=== PATIENT | female | born 1990 ===

== ENCOUNTER 2020-08-17 14:59 | Outpatient (REF) | payer OTHER, SELFPAY ==
--- NOTE | 2020-08-17 14:59 | CT_ITS ---
EXAMINATION: CT FOREARM, LEFT WITH CONTRAST CLINICAL INFORMATION: Swelling of left upper extremity COMPARISON: Ultrasound performed 03/18/2019. TECHNIQUE: Multidetector volumetric imaging of the left upper extremity is performed after administration of 85 mL of Omnipaque 350 IV contrast. Coronal and sagittal reformatted images are obtained and reviewed. This CT examination was performed using dose optimization techniques as appropriate, variously including the following: *Automated exposure control *Adjustment of mA and/or kV according to patient size (this includes techniques or standardized protocols for targeted exams where dose is matched to indication/reason for exam; i.e. extremities or head) *Use of iterative reconstruction technique DLP: 163 mGy-cm FINDINGS: There is no focal abnormality seen in the left upper extremity soft tissues. The musculature is unremarkable. There is no fluid collection. There is no soft tissue mass. There is no subcutaneous edema. There is no acute osseous abnormality. Appropriate alignment at the shoulder and elbow. Subtle area of sclerosis in the proximal humeral metaphysis is noted which could represent a low-grade chondroid lesion such as enchondroma. The visualized vasculature is grossly unremarkable. The visualized left lung is clear. Visualized mediastinal structures are unremarkable. The visualized ribs are intact. The visualized portion of the left upper quadrant of the abdomen shows no acute abnormality. CT/CT forearm LT w con IMPRESSION: No suspicious findings of the left upper extremity. No soft tissue mass. No fluid collection. No inflammatory changes.
== END 2020-08-17 15:00 | disposition home or self-care (01) ==
LOC: HO.CT 14:59
PROVIDERS: PCP Internal Medicine; Visit Provider Internal Medicine
DX: R22.32 Localized swelling, mass and lump, left upper limb (principal)
CPT/HCPCS: 73201

== ENCOUNTER 2020-09-01 15:06 | Outpatient (REF) | payer OTHER, SELFPAY | END 2020-09-01 15:07 | disposition home or self-care (01) | LOC: HO.LAB 15:06 | PROVIDERS: Visit Provider Internal Medicine | DX: Z20.828 Contact with and (suspected) exposure to other viral communicable diseases (principal) | CPT/HCPCS: C9803; U0003 ==

== ENCOUNTER 2020-10-15 16:36 | Outpatient (REF) | payer OTHER, SELFPAY | END 2020-10-15 16:37 | disposition home or self-care (01) | LOC: HO.LAB 16:36 | PROVIDERS: Visit Provider Internal Medicine | DX: Z20.822 Contact with and (suspected) exposure to COVID-19 (principal) | CPT/HCPCS: 36415; C9803; U0003 ==

== ENCOUNTER 2020-10-28 11:28 | Outpatient (REF) | payer OTHER, SELFPAY | END 2020-10-28 11:29 | disposition home or self-care (01) | LOC: HO.LAB 11:28 | PROVIDERS: PCP Internal Medicine; Referring Provider Nurse Practitioner Family; Visit Provider Surgery | DX: D17.22 Benign lipomatous neoplasm of skin and subcutaneous tissue of left arm (principal) | CPT/HCPCS: 99202 ==

== ENCOUNTER 2020-11-30 10:22 | Outpatient (REF) | payer OTHER, SELFPAY ==
[2020-11-30 12:55] LABS: MANUAL DIFF FLAG NO
[2020-11-30 13:10] LABS: Basophils Percent Auto 0.3 % (0-2); Eosinophils Percent Auto 0.3 % (0-4); Hematocrit 36.5 % (37-47); Imm Gran Abs Auto 0.01 X10*3/uL (0.00-0.03); Imm Gran Pct Auto 0.2 % (0.0-0.4); Lymphocytes Absolute Auto 2.2 X10*3/uL (1.2-4.9); Lymphocytes Percent Auto 35.8 % (20-40); Mean Corpuscular HGB Conc 32.9 g/dl (31.0-35.0); Mean Corpuscular Hemoglobin 28.2 pg (27.0-33.0); Mean Corpuscular Volume 85.9 fL (80-98); Mean Platelet Volume 9.7 fL (9.4-12.3); Monocytes Absolute Auto 0.5 X10*3/uL (0.1-1.2); Monocytes Percent Auto 7.9 % (2-11); Neutrophils Absolute Auto 3.4 X10*3/uL (2.0-8.3); Neutrophils Percent Auto 55.5 % (45-73); Platelet Count 263 X10*3/uL (160-400); Red Blood Count 4.25 X10*6/uL (4.20-5.50); Red Cell Distribution Width 12.9 % (11.0-16.0)
[2020-11-30 13:43] LABS: Anion Gap 11 (12-20); Blood Urea Nitrogen 13 mg/dL (9-16); Calcium 9.1 mg/dL (8.4-10.2); Carbon Dioxide 26 mmol/L (22-29); Chloride 107 mmol/L (96-108); Cholesterol 206 mg/dL; Estimated Glomerular Filt Rate > 60; Glucose Fasting 93 mg/dL (60-99); HDL Cholesterol 36 mg/dL; LDL Cholesterol Calculated 102 mg/dl; Potassium 4.2 mmol/L (3.3-5.1); Sodium 140 mmol/L (135-145); Triglycerides 343 mg/dL
[2020-11-30 13:53] LABS: TSH reflex Free T4 1.06 uIU/mL (0.32-4.0)
[2020-12-01 09:24] LABS: BV Int Neg Control Negative (Negative); BV Int Pos Control Positive (Positive)
[2020-12-01 11:41] LABS: C. trachomatis RNA TMA NOT DETECTED (NOT DETECTED); N. gonorrhoeae RNA TMA NOT DETECTED (NOT DETECTED)
[2020-12-03 11:42] LABS: HPV mRNA E6/E7 rflx Not Detected (Not Detected)
== END 2020-11-30 10:23 | disposition home or self-care (01) ==
LOC: HO.LAB 10:22
PROVIDERS: Nurse Practitioner Family; Visit Provider Obstetrics & Gynecology
DX: Z01.419 Encounter for gynecological examination (general) (routine) without abnormal findings (principal); R63.5 Abnormal weight gain; N89.8 Other specified noninflammatory disorders of vagina; N94.10 Unspecified dyspareunia
CPT/HCPCS: 36415; 80048; 80061; 83001; 84443; 85025; 87480; 87491; 87510; 87591; 87624; 87660; 88142

== ENCOUNTER 2020-12-16 14:58 | Outpatient (REF) | payer OTHER, SELFPAY ==
--- NOTE | ~2020-12-16 | US_ITS ---
EXAMINATION: PELVIC ULTRASOUND CLINICAL INFORMATION: Pelvic pain COMPARISON: None TECHNIQUE: Transabdominal and transvaginal pelvic ultrasound was performed. Transvaginal exam was performed for better visualization of the uterus and ovaries. FINDINGS: The uterus is anteverted and measures 9.5 x 4.9 x 5.8 cm in dimension. No focal uterine lesion is seen. Endometrial thickness is normal measuring 1 cm. The ovaries are normal. The right ovary measures 3.6 x 2.3 x 2.4 cm and the left ovary measures 2.8 x 1.7 x 1.8 cm. There is no fluid in the pelvis. US/US pelvic complete IMPRESSION: Normal pelvic ultrasound.
--- NOTE | ~2020-12-16 | US_ITS ---
EXAMINATION: PELVIC ULTRASOUND CLINICAL INFORMATION: Pelvic pain COMPARISON: None TECHNIQUE: Transabdominal and transvaginal pelvic ultrasound was performed. Transvaginal exam was performed for better visualization of the uterus and ovaries. FINDINGS: The uterus is anteverted and measures 9.5 x 4.9 x 5.8 cm in dimension. No focal uterine lesion is seen. Endometrial thickness is normal measuring 1 cm. The ovaries are normal. The right ovary measures 3.6 x 2.3 x 2.4 cm and the left ovary measures 2.8 x 1.7 x 1.8 cm. There is no fluid in the pelvis. US/US transvaginal IMPRESSION: Normal pelvic ultrasound.
== END 2020-12-16 14:59 | disposition home or self-care (01) ==
LOC: HO.US 14:58
PROVIDERS: Visit Provider Obstetrics & Gynecology
DX: R10.2 Pelvic and perineal pain (principal)
CPT/HCPCS: 76830; 76856

== ENCOUNTER → 2020-12-23 10:33 | Outpatient (BNVA) | payer OTHER, SELFPAY | PROVIDERS: Visit Provider Obstetrics & Gynecology | DX: Z13.89 Encounter for screening for other disorder (principal) | CPT/HCPCS: Q3014 ==

== ENCOUNTER → 2021-02-03 11:25 | Outpatient (BNVA) | payer OTHER, SELFPAY | PROVIDERS: Visit Provider Obstetrics & Gynecology | CPT/HCPCS: Q3014 ==

== ENCOUNTER 2021-02-16 17:29 | Outpatient (REF) | payer OTHER, SELFPAY ==
--- NOTE | ~2021-02-16 | XR_ITS ---
EXAMINATION: XR LUMBOSACRAL SPINE WITH OBLIQUES CLINICAL INFORMATION: Low back pain and left-sided sciatica COMPARISON: Previous lumbar spine x-ray most recent March 2017 TECHNIQUE: AP, both oblique, and lateral views of the lumbar spine. Lateral view of the lumbosacral junction. FINDINGS: Bone alignment is normal. No fracture or dislocation is seen. There is degenerative disc disease at L5-S1. Facet joints are normal. No pars defect is seen. XR/XR lumbar spine 4V min IMPRESSION: Degenerative disc disease at L5-S1.
== END 2021-02-16 17:30 | disposition home or self-care (01) ==
LOC: HO.XRAY 17:29
PROVIDERS: PCP Internal Medicine; Visit Provider Internal Medicine
DX: M54.42 Lumbago with sciatica, left side (principal)
CPT/HCPCS: 72110

== ENCOUNTER 2021-02-17 10:25 | Outpatient (REF) | payer OTHER, SELFPAY ==
[2021-02-17 11:34] LABS: MANUAL DIFF FLAG NO
[2021-02-17 11:45] LABS: Basophils Percent Auto 0.2 % (0-2); Eosinophils Percent Auto 0.7 % (0-4); Hematocrit 35.8 % (37-47); Hemoglobin 11.9 g/dl (12.0-16.0); Imm Gran Abs Auto 0.01 X10*3/uL (0.00-0.03); Imm Gran Pct Auto 0.2 % (0.0-0.4); Lymphocytes Absolute Auto 2.5 X10*3/uL (1.2-4.9); Lymphocytes Percent Auto 42.7 % (20-40); Mean Corpuscular HGB Conc 33.2 g/dl (31.0-35.0); Mean Corpuscular Hemoglobin 29.2 pg (27.0-33.0); Mean Platelet Volume 9.6 fL (9.4-12.3); Monocytes Absolute Auto 0.5 X10*3/uL (0.1-1.2); Monocytes Percent Auto 8.9 % (2-11); Neutrophils Absolute Auto 2.8 X10*3/uL (2.0-8.3); Neutrophils Percent Auto 47.3 % (45-73); Platelet Count 278 X10*3/uL (160-400); Red Blood Count 4.07 X10*6/uL (4.20-5.50); Red Cell Distribution Width 12.4 % (11.0-16.0); White Blood Count 5.8 X10*3/uL (4.8-10.8)
[2021-02-17 12:07] LABS: Estimated Average Glucose 97 mg/dL
[2021-02-17 13:12] LABS: Ferritin 10 ng/mL (10-122); TSH reflex Free T4 1.74 uIU/mL (0.32-4.0)
[2021-02-17 13:17] LABS: Alanine Aminotransferase 15 U/L (0-31); Albumin Level 4.5 g/dL (3.5-5.0); Alkaline Phosphatase 49 U/L (39-117); Anion Gap 12 (12-20); Aspartate Amino Transferase 19 U/L (5-31); Bilirubin Total 0.6 mg/dL (0.0-1.0); Blood Urea Nitrogen 11 mg/dL (9-16); Carbon Dioxide 26 mmol/L (22-29); Chloride 105 mmol/L (96-108); Cholesterol 216 mg/dL; Estimated Glomerular Filt Rate > 60; Glucose Random 84 mg/dL (60-115); HDL Cholesterol 35 mg/dL; Iron 49 mcg/dL (30-160); LDL Cholesterol Calculated 115 mg/dl; Percent Iron Saturation 15 % (15-50); Potassium 4.2 mmol/L (3.3-5.1); Sodium 139 mmol/L (135-145); Total Iron Binding Capacity 328 mcg/dL (228-428); Triglycerides 330 mg/dL; Unsaturated Iron Binding 279 ug/dL
== END 2021-02-17 10:26 | disposition home or self-care (01) ==
LOC: HO.LAB 10:25
PROVIDERS: PCP Internal Medicine; Visit Provider Internal Medicine
DX: Z00.00 Encounter for general adult medical examination without abnormal findings (principal); E70.331 Hermansky-Pudlak syndrome; J45.20 Mild intermittent asthma, uncomplicated
CPT/HCPCS: 36415; 80053; 80061; 82728; 83036; 83540; 84443; 85025

== ENCOUNTER → 2022-03-15 08:26 | Outpatient (BNVA) | payer OTHER, SELFPAY | PROVIDERS: PCP Internal Medicine; Referring Provider Internal Medicine; Visit Provider Surgery | DX: D17.22 Benign lipomatous neoplasm of skin and subcutaneous tissue of left arm (principal); E78.1 Pure hyperglyceridemia; J45.909 Unspecified asthma, uncomplicated | CPT/HCPCS: 99202 ==

== ENCOUNTER 2022-07-19 12:50 | Outpatient (REF) | payer OTHER, SELFPAY | END 2022-07-19 12:51 | disposition home or self-care (01) | LOC: HO.LNP 12:50 | PROVIDERS: PCP Internal Medicine; Visit Provider Advanced Practice Midwife | DX: Z32.02 Encounter for pregnancy test, result negative (principal) | CPT/HCPCS: 81025 ==

== ENCOUNTER 2022-07-19 13:59 | Outpatient (REF) | payer OTHER, SELFPAY ==
[2022-07-20 04:50] LABS: HBc Num1 0.24 S/CO (0.00-0.79); HIV AB/AG Nonreactive (Nonreactive); HIV Num 1 0.09 S/CO (0.00-0.99); Hepatitis B Core Antibody Nonreactive (Nonreactive); ~HepC Num1 0.17 S/CO (0.00-0.79); ~Hepatitis C Antibody Nonreactive (Nonreactive)
[2022-07-20 05:22] LABS: Syphilis Screen Nonreactive (Nonreactive)
[2022-07-20 05:35] LABS: CT PCR NOT DETECTED (Not Detect.); NG PCR NOT DETECTED (Not Detect.)
[2022-07-20 09:21] LABS: BV Int Neg Control Negative (Negative); BV Int Pos Control Positive (Positive)
== END 2022-07-19 14:00 | disposition home or self-care (01) ==
LOC: HO.LAB 13:59
PROVIDERS: PCP Internal Medicine; Visit Provider Advanced Practice Midwife
DX: Z11.3 Encounter for screening for infections with a predominantly sexual mode of transmission (principal); Z11.4 Encounter for screening for human immunodeficiency virus [HIV]; R10.2 Pelvic and perineal pain; Z20.2 Contact with and (suspected) exposure to infections with a predominantly sexual mode of transmission
CPT/HCPCS: 86704; 86780; 86803; 87389; 87480; 87491; 87510; 87591; 87660

== ENCOUNTER 2022-07-21 13:49 | Outpatient (REF) | payer OTHER, SELFPAY ==
--- NOTE | ~2022-07-21 | US_ITS ---
EXAMINATION: US PELVIS COMPLETE US PELVIS ENDOVAGINAL CLINICAL INFORMATION: Displacement of intrauterine contraceptive device COMPARISON: None. TECHNIQUE: Transabdominal and transvaginal images of the pelvis were obtained. FINDINGS: UTERUS: Anteverted. Normal size and contour, measuring 9.5 x 4.8 x 6.4 cm (cervix to fundus x AP x transverse). Uniform, homogeneous endometrium measures 1.6 cm in width. No IUD seen within the endometrial canal. Incidentally noted nabothian cysts in the cervix. RIGHT OVARY: Normal size and echogenicity measuring 2.9 x 2.4 x 2.2 cm. LEFT OVARY: Normal size and echogenicity measuring 3.0 x 2.3 x 1.7 cm. FREE FLUID: Small physiologic volume of pelvic free fluid. US/US pelvic and transvaginal IMPRESSION: Normal pelvic ultrasound. No IUD seen within the endometrial canal.
== END 2022-07-21 13:50 | disposition home or self-care (01) ==
LOC: HO.US 13:49
PROVIDERS: Visit Provider Obstetrics & Gynecology
DX: T83.32XA Displacement of intrauterine contraceptive device, initial encounter (principal); R10.2 Pelvic and perineal pain
CPT/HCPCS: 76830; 76856

== ENCOUNTER → 2023-02-28 14:15 | Outpatient (BNVA) | payer OTHER, SELFPAY | PROVIDERS: Visit Provider Surgery | DX: R22.32 Localized swelling, mass and lump, left upper limb (principal); E70.331 Hermansky-Pudlak syndrome; H54.8 Legal blindness, as defined in USA; J45.909 Unspecified asthma, uncomplicated; E78.1 Pure hyperglyceridemia | CPT/HCPCS: 99212 ==

== ENCOUNTER 2023-06-02 11:02 | Outpatient (REF) | payer OTHER, SELFPAY ==
[2023-06-02 15:01] LABS: Cholesterol 182 mg/dL (<200); HDL Cholesterol 38 mg/dL (>40); LDL Cholesterol Calculated 115 mg/dL (<100); Triglycerides 146 mg/dL (<150)
== END 2023-06-02 11:03 | disposition home or self-care (01) ==
LOC: HO.HHCL 11:02
PROVIDERS: Visit Provider Student in an Organized Health Care Education/Training Program
DX: E66.9 Obesity, unspecified (principal)
CPT/HCPCS: 36415; 80061

== ENCOUNTER 2023-11-01 09:52 | Outpatient (AMB) | payer OTHER, SELFPAY ==
--- NOTE | 2023-11-01 09:53 | A.OFFVIS_ITS ---
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 Hspt Tutor Required: No Information Interpreted: clinical only Senior Risk Analyst: Senior Risk Analyst Present Allergies aspirin [ASPIRIN] Allergy (Unknown, Verified 11/01/23 09:53) HIVES, DIFFICULTY SWALLOWING, swelling ibuprofen [IBUPROFEN] Allergy (Unknown, Verified 11/01/23 09:53) HIVES, swelling Medication List - Last Reconciled 11/01/23 by Beatriz Griffin CNM albuterol sulfate 90 mcg/actuation 2 puffs inhalation Q4-6H PRN Is last menstrual period known: Yes Last menstrual period: 10/09/23 Do you need a note to return to daycare/school/sports/work: No HPI 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 She went to [facility] for her pregnancies but she delivered her last baby at [facility] all 3 were C-sections. 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 She has had her tubes tied and is planning a tubal reversal she has been with the same partner for about 7 years. She is 33 years old she has concerns about whether not she can get once her tubal reversal is done. She says she gets her. Most months but not exactly on time according to the krystal. She says she is otherwise healthy but her cholesterol is a little high and she is going to go see a esthetician/spa coordinator. [facility] Medical History (Updated 11/01/23 @ 11:10 by Beatriz Griffin CNM) Lipoma of arm History of varicella Hermansky-Pudlak syndrome Hypertriglyceridemia Asthma Surgical History (Updated 11/01/23 @ 11:10 by Beatriz Griffin CNM) History of section Family History Father No problems noted. Mother No problems noted. 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 Gender identity: Female Female Reproductive History Menstrual Age of Menarche: 10 Duration of menses: 3-5 days Date of last menstrual period: 10/09/23 control method: none Date of last pap smear: 12/01/20 (negative &2014 neg.) History of abnormal pap smear: Yes (per pt.''abn.pap,2010) Physical Exam Const General: healthy appearing, comfortable, no acute distress, well developed and alert Nutritional Appearance: average body habitus Orientation/consciousness: patient oriented x3 Limitations: no limitations HEENT Head: Yes normocephalic Neck Neck: Yes normal visual inspection Chest Chest palpation & inspection: normal inspection of the chest Breast/axilla inspection: normal inspection of the breasts and normal inspection of the axillae Breast/axilla palpation: normal palpation of the breasts and normal palpation of the axillae Resp Effort & Inspection: normal respiratory effort GI Inspection: Yes normal to inspection, No Abdominal wall edema and No distended Palpation (GI): Soft to palpation and nontender Other: Patient has low-transverse scars externally. Vagina pink and moist cervix tightly closed nulliparous scant clear mucus uterus small firm mobile anteverted. Adnexa not enlarged very good tone with Kegel. General: Yes bladder normal to palpation External Female Exam: normal external appearance and normal appearance of the urethra Speculum Exam - Vagina: normal appearance of the vagina, normal palpation and normal vaginal discharge Speculum Exam - Cervix: normal appearance of the cervix, normal palpation and nontender Bimanual exam- vagina & uterus: normal bimanual exam, normal palpation, uterine size normal, bladder normal to palpation, consistency normal, normal palpation, uterine mobility normal, uterine shape normal, No Cervical tenderness present, non-tender and no cervical motion tenderness Bimanual Exam- Adnexa, other: normal adnexae, no masses, normal and No adnexal tenderness Neuro General: patient oriented x3 Results AMB Test Urine AMB Test Urine Negative Last Edit by Aleisha Fernandez CMA on 11/01/23 10:28 Assessment & Plan Assessment & Plan (1) Encounter for annual routine gynecological examination: Code(s): Z01.419 - Encounter for gynecological examination (general) (routine) without abnormal findings (2) Tubal ligation status: Comment: Patient states she had tubes tied after her 3rd at [facility]. She is planning reversal in [place] soon. 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 Recommended that for any future she be seen at [facility]. Code(s): D69.1 - Qualitative platelet defects Plan -----Discussed in this visit the following: healthy balanced diet, regular and consistent exercise, getting recommended health screens, doing the best she can for her particular health concerns, kegel exercises, pap smear screening and followup recommendations, mammography screening and SBE, normal changes in cycles in her life stage--- .--Discussed that after age 35 the risks of infertility, risks of miscarriage, and chromosomal abnormalities are increased, as well as the risk of complications should she can see if, including diabetes and hypertensive disorders of , pre term delivery and others. I recommend starting vitamins if she has not already started. Discussed that these risks or go up with time. They are much more increased if somebody has any pre-existing conditions. The discussion about her menstrual cycle and signs and symptoms of ovulation and her particular menstrual cycle which appears according to the last several months to be about a 35 day cycle discussed that this is why according to the ?appt? she is ovulating late in her cycle. Reviewed the symptoms of ovulation as well reviewed that if she is actually thinking about getting her to will reversal done she should consider doing it soon because our eggs get older as we get older and fertility wanes with time as well as the risk of defects and other medical complications. Because she has had 3 C sections and also because of her platelet disorder she would probably need to deliver at [facility] and get all of her care from the very start there . Reviewed starting on multivitamins with folic acid offered vitamins but she will get multivitamins at more [facility]. Pap smear was done testing for gonorrhea chlamydia trichomoniasis Gardnerella and [place] were done. Testing offered also for HIV hep B hep C and syphilis and because she wanted to check her glucose I ordered a random glucose as well as a TSH. Orders: Orders AMB HCG Urine Test Today Z32.02 - Encounter for test, result negative Bacterial Vaginosis Panel Today Z20.2 - Contact with and (suspected) exposure to infections with a predominantly sexual mode of transmission Thyroid Stimulating Hormone Today E70.331 - Hermansky-Pudlak syndrome, N92.6 - Irregular menstruation, unspecified, Z01.419 - Encounter for gynecological examination (general) (routine) without abnormal findings, Z31.9 - Encounter for procreative management, unspecified, Z98.51 - Tubal ligation status, Z98.891 - History of uterine scar from previous surgery Hepatitis B Surface Antigen Today E70.331 - Hermansky-Pudlak syndrome, N92.6 - Irregular menstruation, unspecified, Z01.419 - Encounter for gynecological examination (general) (routine) without abnormal findings, Z31.9 - Encounter for procreative management, unspecified, Z98.51 - Tubal ligation status, Z98.891 - History of uterine scar from previous surgery HIV Ab/Ag Today E70.331 - Hermansky-Pudlak syndrome, N92.6 - Irregular menstruation, unspecified, Z01.419 - Encounter for gynecological examination (general) (routine) without abnormal findings, Z31.9 - Encounter for procreative management, unspecified, Z98.51 - Tubal ligation status, Z98.891 - History of uterine scar from previous surgery CT NG by PCR Today Z01.419 - Encounter for gynecological examination (general) (routine) without abnormal findings Pap Smear Today Z01.419 - Encounter for gynecological examination (general) (routine) without abnormal findings Hepatitis C Antibody Today E70.331 - Hermansky-Pudlak syndrome, N92.6 - Irregular menstruation, unspecified, Z01.419 - Encounter for gynecological exam ination (general) (routine) without abnormal findings, Z31.9 - Encounter for procreative management, unspecified, Z98.51 - Tubal ligation status, Z98.891 - History of uterine scar from previous surgery Syphilis Screen Today E70.331 - Hermansky-Pudlak syndrome, N92.6 - Irregular menstruation, unspecified, Z01.419 - Encounter for gynecological examination (general) (routine) without abnormal findings, Z31.9 - Encounter for procreative management, unspecified, Z98.51 - Tubal ligation status, Z98.891 - History of uterine scar from previous surgery Glucose Random Today D69.1 - Qualitative platelet defects, E70.331 - Hermansky- Pudlak syndrome, N92.6 - Irregular menstruation, unspecified, Z01.419 - Encounter for gynecological examination (general) (routine) without abnormal findings, Z31.9 - Encounter for procreative management, unspecified, Z98.51 - Tubal ligation status, Z98.891 - History of uterine scar from previous surgery Coding Level of Care Code New Pt Prev Care 18-39yr([id number] Diagnoses Encounter for annual routine gynecological examination Z01.419 Tubal ligation status Z98.51 History of section Z98.891 Hermansky-Pudlak syndrome E70.331 Menstrual cycle disorder N92.6 Patient desires Z31.9 Platelet disorder D69.1
--- OUTSIDE RECORDS SUMMARY | 2023-11-01 09:54 | XMS_ITS | Continuity of Care Document ---
Author Name Unknown Organization [facility] Address [address] [place] [address]- Care Team Providers Care Business And Marketing Teacher Name Role Phone Abiola Casas MD Primary Care Physician [place] [facility] Date[place]s): 09/06/23 - 10/06/23 [facility] [address] [place] [address]- Attending Physician: Ronaldo Mcginnis Admitting Physician: Ronaldo Mcginnis Referring Physician: Ronaldo Mcginnis Allergies, Adverse Reactions, Alerts Substance Reaction Severity Status ibuprofen Active aspirin rash itch Active Medications Aerochamber See Instructions, # 1 each, Maintenance, use with pro-air, 12/30/19 10:32:00 EDT, Compound, 155, cm, 12/10/18 10:12:00 EDT, Height, 64.8, kg, 07/09/18 10:44:00 EDT, Dry Weight Start Date: 12/30/19 Status: Ordered ferrous sulfate 325 mg oral enteric coated tablet 325 mg, 1, tablet, By Mouth, Daily, Take with citrus juice or Vitamin c tablet, # 30 tablet, Refills 5, Tot. Refills 5, Maintenance, 07/09/18 11:42:05 EDT, Route to Pharmacy Electronically, [id number], [facility]/pharmacy #207 Start Date: 07/09/18 Status: Ordered Golytely - oral powder for reconstitution See Instructions, 240 mL By Mouth Daily, # 4,000 mL, 0 Refills, Maintenance, 12/22/20 14:13:00 EDT,REC Powder, [facility], Partial fill upon patient request if the prescription is for a schedule II opioid drug., 240 mL By Mouth Daily, 155, cm... Start Date: 12/22/20 Status: Ordered Iron 100 Plus 1 tablet, By Mouth, Daily, 0 Refills, Maintenance Start Date: 07/18/12 Status: Ordered ProAir HFA 90 mcg/inh inhalation aerosol with adapter 2, puffs, Inhalation, Every 4 hours, PRN, # 8.5 Gm, Refills 0, Tot. Refills 0, Maintenance, 12/30/19 10:32:00 EDT, Aerosol, Route to Pharmacy Electronically, [id number], [facility]/pharmacy #[id number], 155, cm, 12/10/18 10:12:00 EDT, Hei... Start Date: 12/30/19 Status: Ordered Tylenol Caplet 2 tablet, By Mouth, PRN as needed for pain, 0 Refills, Maintenance Start Date: 07/26/12 Status: Ordered Problem List Condition Confirmation Course Effective Dates Status Health St [facility] Informant Hermansky-Pudlak syndrome Confirmed Active Social History Social History Type Response Smoking Status Never smoker entered on: 02/01/17 Sex Patient Care team information Care Team Personnel Name: Renee Cid Position: [facility] Onco RN Member Role: Primary Care Nurse Name: Abiola Casas MD Position: [facility] Outreach Member Role: PCP Address: Address: [address] [place] [address]- Name: Risa Tony RN Position: [facility] SN RN Member Role: Primary Care Nurse Care Team Related Persons Name: MANUELA DELGADILLO Address: home [address] [place] [address] Name: FILIBERTO DELGADILLO Address: home [address] [place] [address] Name: ROB HUNT Address: home [address] [place], [place] Name: HERBER ALEJANDRO Address: home [address] [place] [address] Name: LUCIA QURESHI Address: home [address] [place] [address] Name: PARESH MILLER Address: home [address] [address]
--- OUTSIDE RECORDS SUMMARY | 2023-11-01 09:54 | XMS_ITS | Continuity of Care Document ---
Author Name Unknown Organization [facility] Address [address] [place] [address]- Care Team Providers Care Pile Header Name Role Phone Abiola Casas MD Primary Care Physician [phone] Encounter [facility] [place] Date(s): 01/31/23 - 03/02/23 [facility] [address] [place] [address]- Allergies, Adverse Reactions, Alerts Substance Reaction Severity [...] 07/09/18 11:42:05 EDT, Route to Pharmacy Electronically, [id number], [facility]/pharmacy #207 Start Date: 07/09/18 Status: Ordered Golytely - oral powder for reconstitution See Instructions, 240 mL By Mouth Daily, # 4,000 mL, 0 Refills, Maintenance, 12/22/20 14:13:00 EDT,REC Powder, [id number], Partial fill upon patient request if the [...] 10:32:00 EDT, Aerosol, Route to Pharmacy Electronically, [id number], [facility]/pharmacy #[id number], 155, cm, 12/10/18 10:12:00 EDT, [...] Care Team Personnel Name: Renee Cid Position: [facility] Onco RN Member Role: Primary Care Nurse Name: Abiola Casas MD Position: [facility] Outreach Member Role: PCP Address: Address: [address] [place] [address]- Care Team Related Persons Name: MANUELA DELGADILLO Address: home [address] [place] [address] Name: FILIBERTO DELGADILLO Address: home [address] [place] [address] Name: ROB HUNT Address: home [address] [place] [address] Name: HERBER ALEJANDRO Address: home [address] [place] [address] Name: LUCIA QURESHI Address: home [address] [place] [address] Name: PARESH MILLER Address: home [address] [address]
--- OUTSIDE RECORDS SUMMARY | 2023-11-01 09:55 | XMS_ITS | Continuity of Care Document ---
Author Name Unknown Organization [facility] ter Address [address] [place] [address]- Care Team Providers Care Master Automotive Technician Name Role Phone Abiola Casas MD Primary Care Physician [place] [facility] Date(s): 08/22/23 - 09/30/[address] [address] Attending Physician: Lawson Razo MD Admitting Physician: Lawson Razo MD Referring Physician: Abiola Casas MD Allergies, Adverse Reactions, Alerts Substance Reaction Severity [...] 07/09/18 11:42:05 EDT, Route to Pharmacy Electronically, [id number], [facility] Start Date: 07/09/18 Status: Ordered Golytely [...] 10:32:00 EDT, Aerosol, Route to Pharmacy Electronically, [id number], [facility]/pharmacy #[id number], 155, cm, 12/10/18 10:12:00 EDT, Hei... [...] Care Team Personnel Name: Renee Cid Position: [facility] Onco RN Member Role: Primary Care Nurse Name: Abiola Casas MD Position: [facility] Outreach Member Role: PCP Address: Address: [address] [place] [address]- Name: Risa Tony RN Position: [facility] SN RN Member Role: Primary Care Nurse Care Team Related Persons Name: MANUELA DELGADILLO Address: home [address] [place] [address] Name: FILIBERTO DELGADILLO Address: home [address] [place] [address] Name: ROB HUNT Address: home [address] [place] [address] Name: HERBER ALEJANDRO Address: home [address] [place] [address] Name: LUCIA QURESHI Address: [address] [place] [address] Name: PARESH MILLER Address: home [address] [address]
--- OUTSIDE RECORDS SUMMARY | 2023-11-01 09:55 | XMS_ITS | Continuity of Care Document ---
Author Name Unknown Organization [facility] ter Address [address] [place] [address]- Care Team Providers Care Assistant Director Of Financial Aid Name Role Phone Augusto VEGA, Abiola Primary Care Physician Encounter [facility] [place] Date(s): 03/06/23 - 04/15/[address] [address] Attending Physician: Lawson Razo MD Admitting Physician: Lawson Razo MD Referring Physician: Sudhir Coffey MD Allergies, Adverse Reactions, Alerts Substance Reaction [...] 07/09/18 11:42:05 EDT, Route to Pharmacy Electronically, [id number], [facility] Start Date: 07/09/18 Status: Ordered [...] 10:32:00 EDT, Aerosol, Route to Pharmacy Electronically, [id number], [facility]/pharmacy #[id number], 155, cm, 12/10/18 10:12:00 EDT, Hei... [...] Care Team Personnel Name: Renee Cid Position: [facility] Onco RN Member Role: Primary Care Nurse Name: Abiola Casas MD Position: [facility] Outreach Member Role: PCP Address: Address: [address] [place] [address]- Care Team Related Persons Name: MANUELA DELGADILLO Address: home [address] [place] [address] Name: FILIBERTO DELGADILLO Address: home [address] [place] [address] Name: ROB HUNT Address: [address] [place] [address] Name: HERBER ALEJANDRO Address: home [address] [place] [address] Name: LUCIA QURESHI Address: home [address] [place] [address] Name: PARESH MILLER Address: home [address] [address]
--- OUTSIDE RECORDS SUMMARY | 2023-11-01 09:55 | XMS_ITS | Continuity of Care Document ---
Author Name Unknown Organization [facility] ter Address [address] [place] [address]- Care Team Providers Care Sales Account Coordinator Name Role Phone Abiola Casas MD Primary Care Physician [place] [facility] [place] [facility] [id number] Date(s): 08/09/23 - 09/16/[address] [address] Attending Physician: Lawson Razo [...] 07/09/18 11:42:05 EDT, Route to Pharmacy Electronically, [id number], [id number] Start Date: 07/09/18 Status: Ordered Golytely - oral powder for reconstitution See Instructions, 240 mL By Mouth Daily, # 4,000 mL, 0 Refills, Maintenance, 12/22/20 14:13:00 EDT,REC Powder, [id number], Partial fill upon patient request if the [...] 10:32:00 EDT, Aerosol, Route to Pharmacy Electronically, [id number], [id number], 155, cm, 12/10/18 10:12:00 EDT, Hei... [...] Care Team Personnel Name: Renee Cid Position: [facility] Onco RN Member Role: Primary Care Nurse Name: Abiola Casas MD Position: [facility] Outreach Member Role: PCP Address: Address: [address] [place] [address]- Name: Risa Tony RN Position: [facility] SN RN Member Role: Primary Care Nurse Care Team Related Persons Name: MANUELA DELGADILLO Address: home [address] [place] [address] Name: FILIBERTO DELGADILLO Address: home [address] [place] [address] Name: ROB HUNT Address: home [address] [place] [address] Name: HERBER ALEJANDRO Address: home [address] [place] [address] Name: LUCIA QURESHI Address: home [address] [place] [address] Name: PARESH MILLER Address: home [address] [address]
--- OUTSIDE RECORDS SUMMARY | 2023-11-01 09:55 | XMS_ITS | Continuity of Care Document ---
Author Name Unknown Organization [facility] Address [address] [place] [address]- Care Team Providers Care Carpet Cutter Name Role Phone Augusto VEGA, Abiola Primary [id number] - 10[facility]06/23 [facility] [address] [place] [address]- Attending Physician: Ryley Jeffery DO Admitting Physician: Ryley Jeffery DO Referring Physician: Peterson Singh MD, Herber Fleming Allergies, Adverse Reactions, Alerts Substance Reaction Severity [...] 07/09/18 11:42:05 EDT, Route to Pharmacy Electronically, [id number], [id number] Start Date: 07/09/18 Status: Ordered [...] 10:32:00 EDT, Aerosol, Route to Pharmacy Electronically, [id number], [facility]/pharmacy #[id number], 155, cm, 12/10/18 10:12:00 [...] Care Team Personnel Name: Renee Cid Position: [facility] Onco RN Member Role: Primary Care Nurse Name: Abiola Casas MD Position: [facility] Outreach Member Role: PCP Address: Address: [address] [place] [address]- Name: Risa Tony RN Position: [facility] SN RN Member Role: Primary Care Nurse Care Team Related Persons Name: MANUELA DELGADILLO Address: home [address] [place] [address] Name: FILIBERTO DELGADILLO Address: home [address] [place] [address] Name: ROB HUNT Address: home [address] [place] [address] Name: HERBER ALEJANDRO Address: [address] [place] [address] Name: LUCIA QURESHI Address: home [address] [place] [address] Name: PARESH MILLER Address: home [address] [address]
--- OUTSIDE RECORDS SUMMARY | 2023-11-01 09:55 | XMS_ITS | Continuity of Care Document ---
Author Name Unknown Organization [facility] ter Address [address] [place] [address]- Care Team Providers Care Welding Machine Operator Arc Name Role Phone Augusto VEGA, Abiola Primary Care Physician [phone] [place] [facility] [place](s): 06/26/23 - 08/05/[address] [address] Attending Physician: Not on Staff, Attending MD Referring Physician: Abiola Casas MD Allergies, [...] 07/09/18 11:42:05 EDT, Route to Pharmacy Electronically, [id number], [id number] Start Date: 07/09/18 Status: Ordered Golytely - oral powder for reconstitution See Instructions, 240 mL By Mouth Daily, # 4,000 mL, 0 Refills, Maintenance, 12/22/20 14:13:00 EDT,REC Powder, [facility], Partial fill upon patient request if the prescription is for a schedule II opioid drug., 240 mL By Mouth Daily, 155, cm... Start Date: 3/23/21 Status: Ordered Iron 100 Plus 1 tablet, By Mouth, Daily, 0 Refills, Maintenance Start Date: 07/18/12 Status: Ordered ProAir HFA 90 mcg/inh inhalation aerosol with adapter 2, puffs, Inhalation, Every 4 hours, PRN, # 8.5 Gm, Refills 0, Tot. Refills 0, Maintenance, 12/30/19 10:32:00 EDT, Aerosol, Route to Pharmacy Electronically, [id number], [facility]/pharmacy #[id number], 155, cm, 12/10/18 10:12:00 EDT, [...] Care Team Personnel Name: Renee Cid Position: [facility] Onco RN Member Role: Primary Care Nurse Name: Abiola Casas MD Position: [facility] Outreach Member Role: PCP Address: Address: [address] [place] [address]- Name: Risa Tony RN Position: [facility] SN RN Member Role: Primary Care Nurse Care Team Related Persons Name: MANUELA DELGADILLO Address: home [address] [place] [address] Name: FILIBERTO DELGADILLO Address: home [address] [place] [address] Name: ROB HUNT Address: [address] [place] [address] Name: HERBER ALEJANDRO Address: home [address] [place] [address] Name: LUCIA QURESHI Address: home [address] [place] [address] Name: PARESH MILLER Address: home [address] [address]
--- OUTSIDE RECORDS SUMMARY | 2023-11-01 09:55 | XMS_ITS | Continuity of Care Document ---
Author Name Unknown Organization [facility] ter Address [address] [place] [address]- Care Team Providers Care Feed Weigher Name Role Phone Augusto VEGA, Abiola Primary Care Physician [phone] Encounter [facility] [place] Date(s): 01/23/23 - 03/08/[address] [address] Attending Physician: Lawson Razo MD [...] 07/09/18 11:42:05 EDT, Route to Pharmacy Electronically, [id number], [id number] Start Date: 07/09/18 Status: Ordered [...] 10:32:00 EDT, Aerosol, Route to Pharmacy Electronically, [id number], [facility]/pharmacy #[id number], 155, cm, 12/10/18 [...] Care Team Personnel Name: Renee Cid Position: [facility] Onco RN Member Role: Primary Care Nurse Name: Abiola Casas MD Position: [facility] Outreach Member Role: PCP Address: Address: [address] [place] [address]- Care Team Related Persons Name: MANUELA DELGADILLO Address: home [address] [place] [address] Name: FILIBERTO DELGADILLO Address: home [address] [place] [address] Name: ROB HUNT Address: [address] [place] [address] Name: HERBER ALEJANDRO Address: [address] [place] [address] Name: LUCIA QURESHI Address: [address] [place] [address] Name: PARESH MILLER Address: home [address] [address]
--- OUTSIDE RECORDS SUMMARY | 2023-11-01 09:55 | XMS_ITS | Continuity of Care Document ---
Author Name Unknown Organization [facility] ter Address [address] [place] [address]- Care Team Providers Care Account Maintenance Representative Name Role Phone Augusto VEGA, Abiola Primary Care Physician [phone] [place] [facility] [place] Date(s): 03/16/23 - 04/26/[address] [address] Attending Physician: Lawson Razo MD Admitting [...] 07/09/18 11:42:05 EDT, Route to Pharmacy Electronically, [id number], [facility] Start Date: 07/09/18 Status: Ordered [...] 10:32:00 EDT, Aerosol, Route to Pharmacy Electronically, [id number], [facility]/pharmacy #[id number], 155, cm, 12/10/18 10:12:00 EDT, Hei... [...] Care Team Personnel Name: Renee Cid Position: [facility] Onco RN Member Role: Primary Care Nurse Name: Abiola Casas MD Position: [facility] Outreach Member Role: PCP Address: Address: [address] [place] [address]- Care Team Related Persons Name: MANUELA DELGADILLO Address: home [address] [place] [address] Name: FILIBERTO DELGADILLO Address: home [address] [place] [address] Name: ROB HUNT Address: home [address] [place] [address] Name: HERBER ALEJANDRO Address: [address] [place] [address] Name: LUCIA QURESHI Address: [address] [place] [address] Name: PARESH MILLER Address: home [address] [address]
--- OUTSIDE RECORDS SUMMARY | 2023-11-01 09:55 | XMS_ITS | Continuity of Care Document ---
Author Name Unknown Organization [facility] Address [address] [place] [address]- Care Team Providers Care Mobile Homes Repairer Name Role Phone Augusto VEGA, Abiola Primary Care Physician Encounter [facility] Date(s): 03/29/23 - 04/28/23 [facility] [address] [place] [id number] Allergies, Adverse Reactions, Alerts Substance Reaction Severity [...] 07/09/18 11:42:05 EDT, Route to Pharmacy Electronically, [id number], [facility]/pharmacy #207 Start Date: 07/09/18 Status: Ordered Golytely [...] 10:32:00 EDT, Aerosol, Route to Pharmacy Electronically, [id number], [facility]/pharmacy #[id number], 155, cm, 12/10/18 10:12:00 EDT, [...] Care Team Personnel Name: Renee Cid Position: [facility] Onco RN Member Role: Primary Care Nurse Name: Abiola Casas MD Position: [facility] Outreach Member Role: PCP Address: Address: [address] [place] [address]- Care Team Related Persons Name: MANUELA DELGADILLO Address: home [address] [place] [address] Name: FILIBERTO DELGADILLO Address: home [address] [place] [address] Name: ROB HUNT Address: [address] [place] [address] Name: HERBER ALEJANDRO Address: [address] [place] [address] Name: LUCIA QURESHI Address: [address] [place] [address] Name: PARESH MILLER Address: home [address] [address]
--- OUTSIDE RECORDS SUMMARY | 2023-11-01 09:56 | XMS_ITS | Continuity of Care Document ---
Author Name Unknown Organization [facility] ter Address [address] [place] [address]- Care Team Providers Care Web Operations Lead Name Role Phone Augusto VEGA, Abiola Primary Care Physician En[place] [facility] [place] Date(s): 02/14/23 - 03/19/[address] [address] Attending Physician: Lawson Razo MD Admitting [...] 07/09/18 11:42:05 EDT, Route to Pharmacy Electronically, [id number], [facility] Start Date: 07/09/18 Status: Ordered [...] 10:32:00 EDT, Aerosol, Route to Pharmacy Electronically, [id number], [facility]/pharmacy #[id number], 155, cm, 12/10/18 10:12:00 EDT, [...] Care Team Personnel Name: Renee Cid Position: [facility] Onco RN Member Role: Primary Care Nurse Name: Abiola Casas MD Position: [facility] Outreach Member Role: PCP Address: Address: [address] [place] [address]- Care Team Related Persons Name: MANUELA DELGADILLO Address: home [address] [place] [address] Name: FILIBERTO DELGADILLO Address: home [address] [place] [address] Name: ROB HUNT Address: [address] [place] [address] Name: HERBER ALEJANDRO Address: [address] [place] [address] Name: LUCIA QURESHI Address: home [address] [place] [address] Name: PARESH MILLER Address: home [address] [address]
--- OUTSIDE RECORDS SUMMARY | 2023-11-01 09:56 | XMS_ITS | Continuity of Care Document ---
Author Name Unknown Organization [facility] ter Address [address] [place] [address]- Care Team Providers Care Third Mate Name Role Phone Abiola Casas MD Primary Care Physician [place] [facility] [place] Date(s): 02/28/23 - 04/01/[address] [address] Attending Physician: Lawson Razo MD Admitting Physician: Lawson Razo MD Referring Physician: Lawson Razo MD Allergies, Adverse Reactions, Alerts Substance Reaction [...] 07/09/18 11:42:05 EDT, Route to Pharmacy Electronically, [id number], [facility] Start Date: 07/09/18 Status: Ordered [...] 10:32:00 EDT, Aerosol, Route to Pharmacy Electronically, [id number], [facility]/pharmacy #[id number], 155, cm, 12/10/18 10:12:00 [...] Care Team Personnel Name: Renee Cid Position: [facility] Onco RN Member Role: Primary Care Nurse Name: Abiola Casas MD Position: [facility] Outreach Member Role: PCP Address: Address: [address] [place] [address]- Care Team Related Persons Name: MANUELA DELGADILLO Address: home [address] [place] [address] Name: FILIBERTO DELGADILLO Address: home [address] [place] [address] Name: ROB HUNT Address: home [address] [place], [place] Name: HERBER ALEJANDRO Address: [address] [place] [address] Name: LUCIA QURESHI Address: [address] [place] [address] Name: PARESH MILLER Address: home [address] [address]
--- OUTSIDE RECORDS SUMMARY | 2023-11-01 09:56 | XMS_ITS | Continuity of Care Document ---
Author Name Unknown Organization [facility] Address [address] [place] [address]- Care Team Providers Care Assembly Line Robot Operator Name Role Phone Augusto VEGA, Abiola Primary Care Physician [place] [facility] [place]23 - 03/30/23 [facility] [address] [place] [address] Allergies, Adverse Reactions, Alerts Substance Reaction Severity [...] 07/09/18 11:42:05 EDT, Route to Pharmacy Electronically, [id number], [facility]/pharmacy #207 Start Date: 07/09/18 Status: Ordered [...] 10:32:00 EDT, Aerosol, Route to Pharmacy Electronically, [id number], [facility]/pharmacy #[id number], 155, cm, 12/10/18 10:12:00 EDT, [...] Care Team Personnel Name: Renee Cid Position: [facility] Onco RN Member Role: Primary Care Nurse Name: Abiola Casas MD Position: [facility] Outreach Member Role: PCP Address: Address: [address] [place] [address]- Care Team Related Persons Name: MANUELA DELGADILLO Address: home [address] [place] [address] Name: FILIBERTO DELGADILLO Address: home [address] [place] [address] Name: ROB HUNT Address: home [address] [place] [address] Name: HERBER ALEJANDRO Address: [address] [place] [address] Name: LUCIA QURESHI Address: [address] [place] [address] Name: PARESH MILLER Address: home [address] [address]
== END 2023-11-01 11:03 | disposition home or self-care (01) ==
LOC: HO.HWSM 09:52
PROVIDERS: Visit Provider Advanced Practice Midwife
DX: Z01.419 Encounter for gynecological examination (general) (routine) without abnormal findings (principal); Z98.51 Tubal ligation status; Z98.891 History of uterine scar from previous surgery; E70.331 Hermansky-Pudlak syndrome; N92.6 Irregular menstruation, unspecified; Z31.9 Encounter for procreative management, unspecified; D69.1 Qualitative platelet defects; Z32.02 Encounter for pregnancy test, result negative
CPT/HCPCS: 99385

== ENCOUNTER 2023-11-01 09:52 | Outpatient (REF) | payer OTHER, SELFPAY ==
[2023-11-01 12:44] LABS: Glucose Random 88 mg/dL (60-115)
[2023-11-01 12:58] LABS: Syphilis Screen Nonreactive (Nonreactive)
[2023-11-02 04:28] LABS: HBsAGNum1 0.84 S/CO (0.00-0.99); HIV AB/AG Nonreactive (Nonreactive); HIV Num 1 0.07 S/CO (0.00-0.99); Hepatitis B Surface Antigen Negative (Negative); ~HepC Num1 0.16 S/CO (0.00-0.79); ~Hepatitis C Antibody Nonreactive (Nonreactive)
[2023-11-02 05:30] LABS: CT PCR NOT DETECTED (Not Detect.); NG PCR NOT DETECTED (Not Detect.)
[2023-11-02 14:07] LABS: BV Int Neg Control Negative (Negative); BV Int Pos Control Positive (Positive)
[2023-11-07 04:38] LABS: HPV mRNA E6/E7 rflx Not Detected (Not Detected)
== END 2023-11-01 09:53 | disposition home or self-care (01) ==
LOC: HO.HHCL 09:52
PROVIDERS: Visit Provider Advanced Practice Midwife
DX: Z01.419 Encounter for gynecological examination (general) (routine) without abnormal findings (principal); E70.331 Hermansky-Pudlak syndrome; N92.6 Irregular menstruation, unspecified; D69.1 Qualitative platelet defects; Z20.2 Contact with and (suspected) exposure to infections with a predominantly sexual mode of transmission; Z98.51 Tubal ligation status; Z98.891 History of uterine scar from previous surgery; Z79.899 Other long term (current) drug therapy; Z32.02 Encounter for pregnancy test, result negative
CPT/HCPCS: 0353U; 81025; 82947; 84443; 86780; 86803; 87340; 87389; 87480; 87510; 87624; 87660; 88142

== ENCOUNTER 2024-01-01 11:32 | Outpatient (AMB) | payer OTHER, SELFPAY ==
[2024-01-01 11:46] VITALS: BP 130/69; PULSE 79
--- NOTE | 2024-01-01 11:46 | MHC.OFFVIS ---
Intake Vital Signs 01/01/24 11:46 Weight 160 lb BP 130/69 Blood Pressure Location Rt brachial Position Sitting Pulse 79 Intake Visit Reasons: Multiple Lipomas left upper arm Intake Note: Patient previously seen by Dr. Maurice. Last visit with him January 2023. She is here for 2nd opinion and discuss txt options for lipomas on Lt upper arm. Lipomas have been present for 1yr. Patient c/o: tenderness, Flash Welder Required: No Accompanied by: Spouse Allergies aspirin [ASPIRIN] Allergy (Unknown, Verified 01/01/24 11:48) HIVES, DIFFICULTY SWALLOWING, swelling ibuprofen [IBUPROFEN] Allergy (Unknown, Verified 01/01/24 11:48) HIVES, swelling HPI HPI Comments History of Present Illness Details Patient presents for follow-up for a left triceps area lipoma. She has had this for several months time. She was being seen by Dr. Hoover for follow-up but she presents here now because he is on medical leave. The lipoma she thinks it is status quo. Patient was seen today with her present. Patient has a platelet dyscrasia. [facility] Medical History Lipoma of arm History of varicella Hermansky-Pudlak syndrome Hypertriglyceridemia Asthma Surgical History History of section Family History Father No problems noted. Mother No problems noted. Paternal Aunt Breast cancer Paternal Grandfather Cancer Social History Alcohol intake: never Patient Tobacco Use Status: Never used Tobacco Current occupational status: employed Current occupation: [employer] at [employer] Gender identity: Female Female Reproductive History Menstrual Age of Menarche: 10 Physical Exam Vital Signs: Last Vital Signs Pulse 79 01/01/24 11:46 BP 130/69 01/01/24 11:46 Skin Other: Proximally 3 x 2 cm left mid triceps lipoma. No other pathology demonstrated. No adenopathy. Assessment & Plan Assessment & Plan (1) Lipoma: Code(s): D17.9 - Benign lipomatous neoplasm, unspecified Plan Therapeutic options reviewed the patient which include continued observation or excision. Because of the superficial nature of the lesion, I think this could be excised and an office setting. She would like to consider excision. All questions answered. She will contact me should she wish to pursue the above. Coding Level of Care Code New Pt Level 4 (989[address]) Diagnoses Lipoma D17.9
== END 2024-01-01 11:56 | disposition home or self-care (01) ==
PROVIDERS: Visit Provider Surgery
DX: D17.9 Benign lipomatous neoplasm, unspecified (principal)
CPT/HCPCS: 99204

== ENCOUNTER → 2024-01-01 11:32 | Outpatient (BNVA) | payer OTHER, SELFPAY | PROVIDERS: Visit Provider Surgery | DX: D17.9 Benign lipomatous neoplasm, unspecified (principal) | CPT/HCPCS: 99202 ==

== ENCOUNTER 2024-02-14 | Outpatient (REF) | payer OTHER, SELFPAY | END 2024-02-14 00:01 | disposition home or self-care (01) | LOC: HO.HHCLNP | PROVIDERS: Visit Provider Emergency Medicine | DX: B00.2 Herpesviral gingivostomatitis and pharyngotonsillitis (principal) | CPT/HCPCS: 36415; 87255 ==

== ENCOUNTER 2024-03-04 09:02 | Outpatient (REF) | payer OTHER, SELFPAY ==
[2024-03-04 12:11] LABS: Alanine Aminotransferase 15 U/L (0-31); Albumin Level 4.2 g/dL (3.5-5.0); Alkaline Phosphatase 56 U/L (39-117); Anion Gap 11 (12-20); Aspartate Amino Transferase 21 U/L (5-31); Bilirubin Total 0.6 mg/dL (0.0-1.0); Blood Urea Nitrogen 13 mg/dL (9-16); Calcium 9.3 mg/dL (8.4-10.2); Carbon Dioxide 26 mmol/L (22-29); Chloride 106 mmol/L (96-108); Cholesterol 186 mg/dL (<200); Estimated Glomerular Filt Rate > 60; Glucose Random 84 mg/dL (60-115); HDL Cholesterol 33 mg/dL (>40); Iron 36 mcg/dL (30-160); LDL Cholesterol Calculated 99 mg/dL (<100); Percent Iron Saturation 12 % (15-50); Potassium 4.2 mmol/L (3.3-5.1); Sodium 139 mmol/L (135-145); Total Iron Binding Capacity 290 mcg/dL (228-428); Total Protein 7.9 g/dL (6.5-8.0); Triglycerides 270 mg/dL (<150); Unsaturated Iron Binding 254 ug/dL
[2024-03-04 12:18] LABS: Hematocrit 32.9 % (37.0-47.0); Hemoglobin 10.3 g/dl (12.0-16.0); Mean Corpuscular HGB Conc 31.3 g/dl (31.0-35.0); Mean Corpuscular Hemoglobin 26.2 pg (27.0-33.0); Mean Corpuscular Volume 83.7 fL (80.0-98.0); Mean Platelet Volume 9.7 fL (9.4-12.3); Platelet Count 344 X10*3/uL (160-400); Red Blood Count 3.93 X10*6/uL (4.20-5.50); Red Cell Distribution Width 15.6 % (11.0-16.0); White Blood Count 6.4 X10*3/uL (4.8-10.8)
[2024-03-04 12:23] LABS: Estimated Average Glucose 103 mg/dL; Hemoglobin A1c % 5.2 % (<6.0)
[2024-03-04 12:31] LABS: Ferritin 9 ng/mL (10-122); TSH reflex Free T4 2.05 uIU/mL (0.32-4.0)
[2024-03-04 12:42] LABS: Vitamin B12 332 pg/mL (200-900)
[2024-03-04 14:08] LABS: CT PCR NOT DETECTED (Not Detect.); NG PCR NOT DETECTED (Not Detect.)
[2024-03-05 05:06] LABS: Syphilis Screen Nonreactive (Nonreactive)
[2024-03-05 05:40] LABS: HBS Num1 47.88 mIU/mL (0-7.99); HBc Num1 0.38 S/CO (0.00-0.79); HBsAGNum1 0.85 S/CO (0.00-0.99); HIV AB/AG Nonreactive (Nonreactive); HIV Num 1 0.07 S/CO (0.00-0.99); Hepatitis B Core Antibody Nonreactive (Nonreactive); Hepatitis B Surface Antigen Negative (Negative); ~HepC Num1 0.18 S/CO (0.00-0.79); ~Hepatitis B Surface Antibody REACTIVE (Nonreactive); ~Hepatitis C Antibody Nonreactive (Nonreactive)
[2024-03-07 14:49] LABS: TS Negative Control Passed; TS Panel A 0; TS Panel B 0; TS Positive Control Passed; TSpotTB Negative (Negative)
== END 2024-03-04 09:03 | disposition home or self-care (01) ==
LOC: HO.HHCL 09:02
PROVIDERS: Visit Provider Student in an Organized Health Care Education/Training Program
DX: Z00.00 Encounter for general adult medical examination without abnormal findings (principal); Z11.4 Encounter for screening for human immunodeficiency virus [HIV]; Z13.6 Encounter for screening for cardiovascular disorders
CPT/HCPCS: 0353U; 36415; 80053; 80061; 82607; 82728; 82746; 83036; 83540; 84443; 85027; 86481; 86704; 86706; 86780; 86803; 87340; 87389

== ENCOUNTER 2024-03-26 12:46 | Outpatient (AMB) | payer OTHER, SELFPAY ==
--- NOTE | 2024-03-26 12:52 | A.OFFVIS_ITS ---
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 Allergies aspirin [ASPIRIN] Allergy (Unknown, Verified 03/26/24 12:59) HIVES, DIFFICULTY SWALLOWING, swelling ibuprofen [IBUPROFEN] Allergy (Unknown, Verified 03/26/24 12:59) HIVES, swelling HPI HPI TISSUE TECHNICIAN/ C Ref/ : Details: Very pleasant 33-year-old female presents for evaluation regarding lower extremity pain. She does have some spider telangiectasias and was concern that there may be a venous component to her pain. 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 In addition she had significant scoliosis as a child. She reports that she Jeff did require celia placement of the spine but it was never done. She also explains that she occasionally has numbness from her back radiating down her glutes and the posterior aspect of her right thigh. She now presents to us for vascular evaluation [facility] Medical History Lipoma of arm History of varicella Hermansky-Pudlak syndrome Hypertriglyceridemia Asthma Surgical History History of section Family History Father No problems noted. Mother No problems noted. 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 [employer] Gender identity: Female Female Reproductive History Menstrual Age of Menarche: 10 Review of Systems Const All systems reviewed & are unremarkable except as noted in HPI and below Reports no additional complaints ENT Reports Normal hearing present Card Denies chest pain, Denies chest pain at rest, Denies chest pain with activity and Denies pedal edema Resp Denies cough GI Denies abdominal pain Musc Denies abnormal gait, Denies muscle cramps and Denies radiating pain into limb Skin/Breast Denies skin ulcer and Denies wounds Neuro Reports Normal hearing present and Denies abnormal gait Psych Reports no additional complaints Physical Exam Vital Signs: Last Vital Signs BP 128/82 03/26/24 12:57 Const General: cooperative, healthy appearing and comfortable Orientation/consciousness: oriented to person, oriented to place and oriented to time HEENT Head: Yes normal to inspection Neck Neck: Yes normal visual inspection Carotids: no bruits Chest Chest palpation & inspection: normal inspection of the chest Resp Effort & Inspection: normal respiratory effort and able to speak in complete sentences Auscultation: clear to auscultation bilaterally, no crackles, no rales, no rhonchi and no wheezes Cardio Rate: regular rate Rhythm: regular rhythm Heart sounds: S1 normal heart sound present and S2 normal heart sound present Bruits: no carotid bruits Peripheral pulses: Peripheral pulses 2+ throughout GI Inspection: Yes normal to inspection Skin Wounds: no wounds Hair: normal Neuro General: oriented to person, oriented to place and oriented to time Cranial nerves: Yes CN's II-XII intact bilaterally and Yes Normal hearing present Cognition (Neuro): normal cognition Motor exam (neuro): 5/5 motor strength present throughout Extrem Other: venous exam: +1 edema with some spider telangiectasias General: No clubbing, No cyanosis and Yes edema Psych Appearance: grossly normal Mental Status: mental status grossly normal Speech and movement: Normal speech and movement present Assessment & Plan Assessment & Plan (1) Varicose veins of right lower extremity with inflammation: Code(s): I83.11 - Varicose veins of right lower extremity with inflammation Category: Medical Plan: In short patient has lower extremity pain. I do believe this is more neurogenic in nature. I have taken the liberty of ordering venous insufficiency testing to rule that out. I did explain that most of her spider telangiectasias are more cosmetic in nature. Should her venous testing prove to be negative will plan for lower extremity pain evaluation. Thank you for allowing us to assist in her care. If there are any questions or concerns please do not hesitate to contact us. Orders: Orders US venous duplex LE BI 1 Week I83.11 - Varicose veins of right lower extremity with inflammation Coding Level of Care Code New Pt Level 4 ([address]) Diagnoses Varicose veins of right lower extremity with inflammation I83.11
[2024-03-26 12:57] VITALS: BP 128/82
== END 2024-03-26 13:29 | disposition home or self-care (01) ==
PROVIDERS: Visit Provider Surgery Vascular Surgery
DX: I83.11 Varicose veins of right lower extremity with inflammation (principal)
CPT/HCPCS: 99203

== ENCOUNTER → 2024-03-26 12:46 | Outpatient (BNVA) | payer OTHER, SELFPAY | PROVIDERS: Visit Provider Surgery Vascular Surgery | DX: I83.11 Varicose veins of right lower extremity with inflammation (principal) | CPT/HCPCS: 99202 ==

== ENCOUNTER 2024-04-10 13:01 | Outpatient (REF) | payer OTHER, SELFPAY ==
--- NOTE | ~2024-04-10 | US_ITS ---
EXAMINATION: US LOWER EXTREMITY VENOUS (REFLUX EXAM), BILATERAL CLINICAL INDICATION: Varicose veins of the right lower extremity COMPARISON: None. TECHNIQUE: Color flow triplex imaging and compression Doppler was performed to evaluate both the deep and the superficial systems bilaterally. To evaluate the superficial system, the examination was performed in the upright position. Color-flow Doppler ultrasound and compression ultrasound were utilized. In addition, maneuvers were utilized to demonstrate reflux. FINDINGS: RIGHT: 1. DEEP VENOUS ULTRASOUND OF THE RIGHT LOWER EXTREMITY: Common Femoral Vein: Compressible, normal respiratory variation and augmented flow. Popliteal Vein: Compressible, normal augmentation. Deep Venous Reflux: There is no evidence of reflux in the deep system in either the common femoral vein or the popliteal vein. There is no evidence of a Romano's cyst. 2. SUPERFICIAL ULTRASOUND WITH DOPPLER OF RIGHT LOWER EXTREMITY: RIGHT GREAT SAPHENOUS VEIN: Saphenofemoral Junction: 6 mm. No reflux. Proximal Thigh: 2 mm. No reflux. Mid Thigh: 2 mm. No reflux. Above Knee: 3 mm. No reflux. Below Knee: 2 mm. No reflux. Mid Calf: 2 mm. No reflux. Ankle: 2 mm. No reflux. DUPLICATED GREAT SAPHENOUS VEIN: Lateral: Mid thigh: 2 mm. No reflux. RIGHT SMALL SAPHENOUS VEIN: Proximal: 2 mm. No reflux. Distal: 3 mm. No reflux. PERFORATORS: Great saphenous vein at the distal calf: 2 mm. No reflux. LEFT: 1. DEEP VENOUS ULTRASOUND OF THE LEFT LOWER EXTREMITY: Common Femoral Vein: Compressible, normal respiratory variation and augmented flow. Popliteal Vein: Compressible, normal augmentation. Deep Venous Reflux: There is no evidence of reflux in the deep system in either the common femoral vein or the popliteal vein. There is no evidence of a Romano's cyst. 2. SUPERFICIAL ULTRASOUND WITH DOPPLER OF LEFT LOWER EXTREMITY: LEFT GREAT SAPHENOUS VEIN: Saphenofemoral Junction: 6 mm. No reflux. Proximal Thigh: 6 mm. No reflux. Mid Thigh: 2 mm. No reflux. Above Knee: 2 mm. No reflux. Below Knee: 2 mm. No reflux. Mid Calf: 2 mm. No reflux. Ankle: 1 mm. No reflux. DUPLICATED GREAT SAPHENOUS VEIN: None LEFT SMALL SAPHENOUS VEIN: Proximal: 2 mm. No reflux. Distal: 2 mm. No reflux. PERFORATORS: None US/US venous duplex LE BI IMPRESSION: No abnormal superficial or deep venous reflux of bilateral lower extremities. No varicose veins. No deep vein thrombosis. Abnormal lower extremity venous reflux times: Superficial and deep calf veins: >500 ms Femoropopliteal veins: >1000 ms Perforating veins: >350 ms Zoraida N, Beatrice J, Vernon L, Geoffrey AK, Faustino SS, Jenn Elizondo, Rosalina WH. Definition of venous reflux in lower-extremity veins.J Vasc Surg. 2003; 38:[phone]?798.
== END 2024-04-10 13:02 | disposition home or self-care (01) ==
LOC: HO.US 13:01
PROVIDERS: PCP Student in an Organized Health Care Education/Training Program; Visit Provider Surgery Vascular Surgery
DX: I83.11 Varicose veins of right lower extremity with inflammation (principal)
CPT/HCPCS: 93970

== ENCOUNTER 2024-04-27 16:44 | Emergency (ER) | payer OTHER, SELFPAY ==
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
[2024-04-27 16:48] VITALS: BP 122/82; PULSE 101; O2SAT 95
[2024-04-27 16:54] VITALS: BP 134/66; PULSE 109; RESP 16; TEMP 36.6; O2SAT 100; BMI 29.2
[2024-04-27 18:09] LABS: Appearance Urine Clear; Color Urine Yellow; Glucose Urine UA Negative (Negative); Leukocyte Esterase Urine Negative (Negative); Nitrite Urine Negative (Negative); Urine Blood Negative (Negative); Urine Ketones Negative (Negative); Urine Protein Negative (Neg-Trace)
[2024-04-27 18:10] LABS: UPreg QC Valid YES; Urine Pregnancy NEGATIVE (NEGATIVE)
--- NOTE | 2024-04-27 18:13 | PC.NURSE ---
Patient very concerned about internal bleeding d/t her HPS Hermansky-Pudlak syndrome, requesting CT scan. Informed patient that she is next on the list for a provider to see, nurses are unable to order that level of testing without provider's okay. Patient comfortable to wait for blood work until provider has seen her.
[2024-04-27 18:20] LABS: Amphetamine Screen Urine Not Detected (Not Detect); Barbiturates, Urine Not Detected (Not Detect); Benzodiazepines Screen Urine Not Detected (Not Detect); Buprenorphine Scr Not Detected (Not Detect); Cannabinoid Screen Urine Not Detected (Not Detect); Cocaine Screen Urine Not Detected (Not Detect); Fentanyl, urine Not Detected (Not Detect); Methadone Screen, Urine Not Detected (Not Detect); Opiate Screen Urine Not Detected (Not Detect); Oxycodone Screen Urine Not Detected (Not Detect); Phencyclidine Screen Urine Not Detected (Not Detect)
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
[2024-04-27] MEDS: Acetaminophen 325 MG TABLET 650 MG PO (18:41)
[2024-04-27 21:28] VITALS: BP 109/84; PULSE 81; RESP 17; TEMP 36.9; O2SAT 99
[2024-04-27 22:41] VITALS: BP 109/84; PULSE 81; RESP 17; TEMP 36.9; O2SAT 99
== END 2024-04-27 22:42 | disposition home or self-care (01) ==
PROVIDERS: Emergency Provider Emergency Medicine; PCP Student in an Organized Health Care Education/Training Program
DX: R51.9 Headache, unspecified (principal); S70.11XA Contusion of right thigh, initial encounter; V43.62XA Car passenger injured in collision with other type car in traffic accident, initial encounter; Y93.89 Activity, other specified; Y92.410 Unspecified street and highway as the place of occurrence of the external cause; Y99.9 Unspecified external cause status; Z79.899 Other long term (current) drug therapy
CPT/HCPCS: 70450; 70486; 71045; 72125; 73552; 80307; 81003; 81025; 99284

== ENCOUNTER 2024-05-07 12:55 | Outpatient (AMB) | payer OTHER, SELFPAY ==
--- NOTE | 2024-05-07 12:54 | MHC.OFFVIS ---
Vital Signs 05/07/24 12:57 Height 5 ft 1 in Weight 158 lb BMI 29.9 BP 112/74 Blood Pressure Location Rt brachial Position Sitting Intake Visit Reasons: follow up [facility] 04/10/24 Intake Note: Demetrice is a 33 year old female who presents to the office today for a follow up [facility] 04/10/24. Allergies aspirin [ASPIRIN] Allergy (Unknown, Verified 05/07/24 12:54) HIVES, DIFFICULTY SWALLOWING, swelling ibuprofen [IBUPROFEN] Allergy (Unknown, Verified 05/07/24 12:54) HIVES, swelling HPI HPI follow up [facility] 04/10/24: Details: Pleasant 33-year-old female presents for follow-up regarding venous pain. Her concern is that she does have some spider telangiectasias. She has occasional swelling of her lower extremities. 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 She now presents for follow-up with venous insufficiency testing. Of note she does have back pain issues and she does have a prior history of spinal scoliosis. [facility] Medical History Lipoma of arm History of varicella Hermansky-Pudlak syndrome Hypertriglyceridemia Asthma Surgical History History of section Family History Father No problems noted. Mother No problems noted. 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 [employer] Gender identity: Female Female Reproductive History Menstrual Age of Menarche: 10 Review of Systems Const All systems reviewed & are unremarkable except as noted in HPI and below Reports no additional complaints ENT Reports Normal hearing present Card Denies chest pain, Denies chest pain at rest, Denies chest pain with activity and Denies pedal edema Resp Denies cough GI Denies abdominal pain Musc Denies abnormal gait, Denies muscle cramps and Denies radiating pain into limb Skin/Breast Denies skin ulcer and Denies wounds Neuro Reports Normal hearing present and Denies abnormal gait Psych Reports no additional complaints Physical Exam Vital Signs: Last Vital Signs BP 112/74 05/07/24 12:57 BMI result Body Mass Index 29.9 Const General: cooperative, healthy appearing and comfortable Orientation/consciousness: oriented to person, oriented to place and oriented to time HEENT Head: Yes normal to inspection Neck Neck: Yes normal visual inspection Carotids: no bruits Chest Chest palpation & inspection: normal inspection of the chest Resp Effort & Inspection: normal respiratory effort and able to speak in complete sentences Auscultation: clear to auscultation bilaterally, no crackles, no rales, no rhonchi and no wheezes Cardio Rate: regular rate Rhythm: regular rhythm Heart sounds: S1 normal heart sound present and S2 normal heart sound present Bruits: no carotid bruits Peripheral pulses: Peripheral pulses 2+ throughout GI Inspection: Yes normal to inspection Skin Wounds: no wounds Hair: normal Neuro General: oriented to person, oriented to place and oriented to time Cranial nerves: Yes CN's II-XII intact bilaterally and Yes Normal hearing present Cognition (Neuro): normal cognition Motor exam (neuro): 5/5 motor strength present throughout Extrem Other: venous exam: No significant superficial varicosities or spider telangiectasias, minimal edema General: No clubbing, No cyanosis and No edema Psych Appearance: grossly normal Mental Status: mental status grossly normal Speech and movement: Normal speech and movement present Results Reviewed Results Reviewed: Brief summary of venous insufficiency testing is as follows: right great saphenous vein: negative right small saphenous vein: negative right accessory vein: none present left great saphenous vein: negative left small saphenous vein: negative left accessory vein: none present Please note there is no evidence of any venous aneurysms or significant tortuosity Assessment & Plan Assessment & Plan (1) Varicose veins of right lower extremity with inflammation: Code(s): I83.11 - Varicose veins of right lower extremity with inflammation Category: Medical Plan: In short patient is negative for any significant venous insufficiency. I do think it is coincidental that she does have some spider telangiectasias which have been a source of pain and discomfort for her. Due to her underlying conditions would not recommend any sort of intervention especially with her testing being negative. At the current time would recommend conservative measures including compression elevation and exercise. She will follow up with us on an as-needed basis. Thank you for allowing us to assist in her care. If there are any questions or concerns please do not hesitate to contact us Coding Level of Care Code Est Pt Level 4 (71046) Diagnoses Varicose veins of right lower extremity with inflammation I83.11
[2024-05-07 12:57] VITALS: BP 112/74; BMI 29.9
== END 2024-05-07 13:15 | disposition home or self-care (01) ==
PROVIDERS: PCP Student in an Organized Health Care Education/Training Program; Visit Provider Surgery Vascular Surgery
DX: I83.11 Varicose veins of right lower extremity with inflammation (principal)
CPT/HCPCS: 99214

== ENCOUNTER → 2024-05-07 12:55 | Outpatient (BNVA) | payer OTHER, SELFPAY | PROVIDERS: PCP Student in an Organized Health Care Education/Training Program; Visit Provider Surgery Vascular Surgery | DX: I83.11 Varicose veins of right lower extremity with inflammation (principal) | CPT/HCPCS: 99212 ==

== ENCOUNTER 2024-05-10 13:28 | Outpatient (REF) | payer OTHER, SELFPAY ==
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
== END 2024-05-10 13:29 | disposition home or self-care (01) ==
LOC: HO.HHCX 13:28
PROVIDERS: Visit Provider Nurse Practitioner Family
DX: M25.572 Pain in left ankle and joints of left foot (principal)
CPT/HCPCS: 73610

== ENCOUNTER 2025-04-30 13:37 | Outpatient (REF) | payer OTHER, SELFPAY ==
--- OUTSIDE RECORDS SUMMARY | 2025-04-30 14:17 | XMS_ITS | Encounter Summary ---
Author Organization [employer] Address [address] [place] [address] Care Team Providers Care Talent Director Name Role Phone Rosy Cobb MD Primary Care Pro vider Reason for Visit * Reason Onset Date Comments Med Refill 07/16/2024 Encounter Details Date Type Department Care Team ([facility] st Contact Info) Description 07/16/2024 Telephone [facility] [address] [place] [address] Rosy Cobb MD [address] [place] [address] Med Refill Social History Tobacco Use Types Packs/Day Years Used Date Smoking Tobacco: Never Passive Smoke Exposure: Never Smokeless Tobacco: Never Alcohol Use Standard Drinks/Week Comments Yes 0 (1 standard drink = 0.6 oz pur e alcohol) social Depression Answer Date Recorded Patient Health Questionnaire-9 Score 1 01/31/2024 Patient Health Questionnaire-9 Score 1 01/31/2024 Last PHQ-9: Questionnaire Data Not on file 0 01/31/2024 Housing Stability Answer Date Recorded What is your housing situation today? I have pennie traore 01/31/[address] you li ve. Do you have problems with any of the following? None of the above 01/31/2024 Food Insecurity Answer Date Recorded Within the past 12 months, y ou worried that your food would run out before you got money to buy more: Never True 01/31/2024 Within the past 12 months,th e food you bought just didn't last and you didn't have enough money to get more: Never True 10/2023 Transportation Answer Date Recorded In the past 12 months, has l ack of transportation kept you from medical appts, meetings, work or from getting things needed for daily living? No 01/31/2024 Utilities Answer Date Recorded In the past 12 months, has t he electric, gas, oil or water company threatened to shut off services in your home? No 01/31/2024 Depression Answer Date Recorded Patient Health Questionnaire-2 Score 0 01/31/2024 Comments Unknown Sex and Gender Information Value Date Recorded Sex Assigned at Female 08/01/2022 10:19 AM EDT Legal Sex Female 10:19 AM EDT Gender Identity Female 08/01/2022 10:19 AM EDT Sexual Orientation Straight 06/02/2023 10 :15 AM EDT documented as of this encounter Miscellaneous Notes * Telephone Encounter - Yohannes Ricardo - 07/16/2024 12:02 PM EDT Tc from pt requesting call back regarding program where she received a [employer] gift card every month. Pt states she was advised this would be through pcp. Please contact pt at [phone]. documented in this encounter Plan of Treatment Upcoming Encounters Date Type Department Care Team (Late st Contact Info) Description 05/01/2025 2:15 PM EDT Office Visit [facility] [address] [place] [phone] Rosy Cobb MD [address] [place] [id number] documented as of this encounter Visit Diagnoses Not on filedocumented in this encounter Additional Health Concerns Assessment Noted Time PHQ-9 Depression Total Score: 1 01/31/20 24 10:55 AM EDT documented as of this encounter Care Teams Talent Director Relationship Specialty Start Date End Date Rosy Cobb MD [address] [place] [phone] PCP - General Internal Medicine 01/25/23 documented as of this encounter
--- OUTSIDE RECORDS SUMMARY | 2025-04-30 14:17 | XMS_ITS | Encounter Summary ---
Author Organization [facility] Address [address] [place] [address] Phone Care Team Providers Care Package Center Supervisor Name Role Phone Unavailable Primary Care Provider Unavailabl e Encounter Details Date Type Department Care Team (Late st Contact Info) Description 05/18/2017 Conversion Encounter [facility] - [address] [id number] Social History Tobacco Use Types Packs/Day Years Used Date Smoking Tobacco: Never Assessed Comments Unknown Sex and Gender Information Value Date Recorded Sex Assigned at Not on file Legal Sex Female 4:32 PM EDT Gender Identity Not on file Sexual Orientation Not on file documented as of this encounter Plan of Treatment Not on file documented as of this encounter Visit Diagnoses Not on filedocumented in this encounter
[2025-04-30 16:10] LABS: Hematocrit 36.1 % (37.0-47.0); Hemoglobin 11.8 g/dl (12.0-16.0); Mean Corpuscular HGB Conc 32.7 g/dl (31.0-35.0); Mean Corpuscular Hemoglobin 27.4 pg (27.0-33.0); Mean Corpuscular Volume 84.0 fL (80.0-98.0); NRBC Abs Auto 0.000 X10*3/uL (0.0-0.012); NRBC Pct Auto 0.0 /100WBC (0.0-0.2); Platelet Count 324 X10*3/uL (160-400); Red Blood Count 4.30 X10*6/uL (4.20-5.50); White Blood Count 5.3 X10*3/uL (4.8-10.8)
[2025-04-30 16:29] LABS: Hemoglobin A1C 106.1958 umol/L; Total Hemoglobin (HGBA1C) 3149.4241 umol/L
[2025-04-30 16:31] LABS: Alanine Aminotransferase 21 U/L (0-31); Albumin Level 4.6 g/dL (3.5-5.0); Alkaline Phosphatase 58 U/L (39-117); Anion Gap 12 (12-20); Aspartate Amino Transferase 32 U/L (5-31); Blood Urea Nitrogen 9 mg/dL (9-16); Calcium 9.1 mg/dL (8.4-10.2); Carbon Dioxide 26 mmol/L (22-29); Chloride 106 mmol/L (96-108); Cholesterol 207 mg/dL (<200); Estimated Glomerular Filt Rate > 60; HDL Cholesterol 35 mg/dL (>40); Iron 55 mcg/dL (30-160); Percent Iron Saturation 19 % (15-50); Potassium 4.2 mmol/L (3.3-5.1); Sodium 140 mmol/L (135-145); Total Iron Binding Capacity 286 mcg/dL (228-428); Total Protein 7.9 g/dL (6.5-8.0); Triglycerides 326 mg/dL (<150); Unsaturated Iron Binding 231 ug/dL
[2025-04-30 16:55] LABS: Ferritin 10 ng/mL (10-122)
[2025-04-30 17:41] LABS: CT PCR Urine NOT DETECTED (Not Detect.); NG PCR Urine NOT DETECTED (Not Detect.)
[2025-05-01 08:05] LABS: Syphilis Screen Nonreactive (Nonreactive)
[2025-05-01 08:27] LABS: HBsAGNum1 0.62 S/CO (0.00-0.99); HIV Num 1 0.08 S/CO (0.00-0.99); Hepatitis B Surface Antigen Negative (Negative); ~HepC Num1 0.18 S/CO (0.00-0.79); ~Hepatitis C Antibody Nonreactive (Nonreactive)
== END 2025-04-30 13:38 | disposition home or self-care (01) ==
LOC: HO.HHCL 13:37
PROVIDERS: PCP Student in an Organized Health Care Education/Training Program; Visit Provider Student in an Organized Health Care Education/Training Program
DX: Z11.4 Encounter for screening for human immunodeficiency virus [HIV] (principal); Z11.3 Encounter for screening for infections with a predominantly sexual mode of transmission; Z11.59 Encounter for screening for other viral diseases; Z00.00 Encounter for general adult medical examination without abnormal findings
CPT/HCPCS: 36415; 80053; 80061; 82306; 82728; 83036; 83540; 84443; 85027; 86780; 86803; 87340; 87389; 87491; 87591

== ENCOUNTER 2025-05-16 13:40 | Outpatient (REF) | payer OTHER, SELFPAY ==
--- OUTSIDE RECORDS SUMMARY | 2025-05-16 13:42 | XMS_ITS | Encounter Summary ---
Author Organization [facility] Address [address] [place] [address] Phone Care Team Providers Care Table Saw Operator Name Role Phone Unavailable Primary Care Provider Unavailabl e Encounter Details Date Type Department Care Team (Late st Contact Info) Description 05/18/2017 Conversion Encounter [facility] - [address] [address] Social History Tobacco Use Types Packs/Day Years [...]
--- OUTSIDE RECORDS SUMMARY | 2025-05-16 13:42 | XMS_ITS | Encounter Summary ---
Author Organization [employer] Address [address] [facility] 7t [place] [address] Care Team Providers Care Rack Loader Name Role Phone Rosy Cobb MD Primary Care Pro vider Reason for Visit * Reason Onset Date Comments Lab Orders 05/16/2025 Encounter Details Date Type Department Care Team (Late st Contact Info) Description 05/16/2025 Telephone [facility] [address] [place] [address] Beatriz Ray RN Lab Orders Social History Tobacco Use Types Packs/Day Years Used Date Smoking Tobacco: Never Passive Smoke Exposure: Never Smokeless Tobacco: Never Alcohol Use Standard Drinks/Week Comments Not Currently 0 (1 standard drink = 0.6 oz pur e alcohol) Depression Answer Date Recorded Patient Health Questionnaire-9 Score 0 02/10/2025 Patient Health Questionnaire-9 Score 0 02/10/2025 Last PHQ-9: Questionnaire Data Not on file 0 02/10/2025 Housing Stability Answer Date Recorded What is your housing situation today? I have penniecarolann traore 02/04/[address] you li ve. Do you have problems with any of the following? None of the above 02/04/2025 Food Insecurity Answer Date Recorded Within the past 12 months, y ou worried that your food would run out before you got money to buy more: Never True 02/04/2025 Within the past 12 months,th e food you bought just didn't last and you didn't have enough money to get more: Never True 03/2025 Transportation Answer Date Recorded In the past 12 months, has l ack of transportation kept you from medical appts, meetings, work or from getting things needed for daily living? No 02/04/2025 Utilities Answer Date Recorded In the past 12 months, has t he electric, gas, oil or water company threatened to shut off services in your home? 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 documented in this encounter Plan of Treatment Upcoming Encounters Date Type Department Care Team (Late st Contact Info) Description 07/31/2025 11:15 AM EDT Office Visit [facility] [address] [place] [address] Rosy Cobb MD [address] [place] [phone] Scheduled Orders Name Type Priority Associated Diagnoses Orde r Schedule T-SPOT .TB Lab Routine Encounter for occupational health assessment Expected: 05/16/2025 (Approximate), Expires: 05/16/2026 documented as of this encounter Visit Diagnoses Diagnosis Encounter for occupational health assessment documented in this encounter Additional Health Concerns Assessment Noted Time PHQ-9 Depression Total Score: 0 02/11/20 25 1:30 PM EDT documented as of this encounter Care Teams Rack Loader Relationship Specialty Start Date End Date Rosy Cobb MD [address] [place] [phone] PCP - General Internal Medicine 01/25/23 documented as of this encounter
[2025-05-19 13:38] LABS: TS Negative Control Passed; TS Panel A 0; TS Panel B 0; TS Positive Control Passed; TSpotTB Negative (Negative)
== END 2025-05-16 13:41 | disposition home or self-care (01) ==
LOC: HO.HHCL 13:40
PROVIDERS: PCP Student in an Organized Health Care Education/Training Program; Visit Provider Student in an Organized Health Care Education/Training Program
DX: Z02.89 Encounter for other administrative examinations (principal); Z11.1 Encounter for screening for respiratory tuberculosis
CPT/HCPCS: 36415; 86481

== ENCOUNTER 2025-06-13 14:16 | Outpatient (REF) | payer OTHER, SELFPAY ==
--- OUTSIDE RECORDS SUMMARY | 2025-06-13 11:15 | XMS_ITS | Encounter Summary ---
Author Organization [employer] Address [address] [facility] 7t [place] [address] Care Team Providers Care Director Food Safety Name Role Phone Rosy Cobb MD Primary Care Pro vider Encounter Details Date Type Department Care Team (Late st Contact Info) Description 06/13/2025 11:15 AM EDT Office Visit [facility] [address] [place] [address] Minoo Castro DO [address] [place] [address] Vaginal discharge (Primary Dx) Social History Tobacco Use Types Packs/Day Years [...] housing situation today? I have pennie traore 02/04/[address] you [...] Access Q2 Not on file 02/04/2025 Comments No Sex and Gender Information Value Date Recorded Sex Assigned at Female 08/01/2022 10:19 AM EDT Legal Sex Female 10:19 AM EDT Gender Identity Female 08/01/2022 10:19 AM EDT Sexual Orientation Straight 06/02/2023 10 :15 AM EDT documented as of this encounter Last Filed Vital Signs Vital Sign Reading Time Taken Comments Blood Pressure 128/72 06/13/2025 11:40 AM EDT Pulse 88 06/13/2025 11:40 AM EDT Temperature 36.9 C (98.4 F) 06/13/2025 11:40 AM EDT Respiratory Rate 19 06/13/2025 11:40 AM EDT Oxygen Saturation 98% 06/13/2025 11:40 AM EDT Inhaled Oxygen Concentration - - Weight 77.3 kg (170 lb 6 oz) 06/13/2025 11:40 AM EDT Height - - Body Mass Index 32.19 05/01/2025 1:57 PM EDT documented in this encounter Plan of Treatment Upcoming Encounters Date Type Department Care Team (Late st Contact Info) Description 07/31/2025 11:15 AM EDT Office Visit [facility] [address] [place] [phone] Rosy Cobb MD [address] [place] [address] Scheduled Orders Name Type Priority Associated Diagnoses Orde r Schedule Culture, Urine, Routine Microbiology Routine Vaginal discharge Expected: 06/13/2025 (Approximate), Expires: 06/13/2026 documented as of this encounter Procedures Procedure Name Priority Date/Time Associated Diagnosis Comments POCT URINALYSIS DIPSTICK Routine 06/13/2025 12:05 PM EDT Vaginal discharge POCT , URINE Routine 06/13/2025 12:04 PM EDT Vaginal discharge BACTERIAL VAGINOSIS PANEL Routine 06/13/2025 11:33 AM EDT Vaginal discharge CHLAMYDIA/N. GONORRHOEAE RNA, TMA, UROGENITAL Routine 06/13/2025 11:33 AM EDT Vaginal discharge documented in this encounter Results * POCT Urinalysis (06/13/2025 12:05 PM EDT) Color, UA Yellow Clarity, UA Cloudy Glucose, UA Negative Bilirubin, UA Trace Comment:small Ketones, UA Negative Spec Grav, UA 1.030 Blood, UA Negative Negative, None Detected pH, UA 5.5 Protein, UA Trace Comment:30mg Urobilinogen, UA 0.2 Leukocytes, UA Negative Negative, Rare, Trace Nitrite, UA Negative Negative, None Detected QC Media Lot # [id number] Lot# Expiration Date Urine 06/13/2025 12:0 5 PM EDT Minoo Castro DO POINT OF CARE TEST ENTER/KEITH T ORDERABLES Final Result * POCT Urine (06/13/2025 12:04 PM EDT) Pathologist [facility] Preg Test, Ur Negative Negative, Indeterminate, None Detected, Invalid, Specimen unsatisfactory for evaluation, Weakly Positive, 2+ QC Media Lot # [id number] Lot# Expiration Date Urine 06/13/2025 12:0 4 PM EDT Minoo [employer] RILEY POINT OF CARE TEST ENTER/KEITH T ORDERABLES Final Result * Chlamydia/N. Gonorrhoeae RNA, TMA, Vaginal (06/13/2025 11:33 AM EDT) Pathologist [facility] CT PCR NOT DETECTED Not Detect. [facility] Comment:A not detected test result does not exclude the possibilityof infection because test results can be affected byimproper specimen collection, concurrent antibiotic therapy,or the number of organisms in the specimen which may bebelow the sensitivity of the test. As with many diagnostictests, results from the Xpert CT/NG assay should beinterpreted in conjunction with other laboratory andclinical data available to the clinician.Xpert CT/NG performance has not been evaluated in patientsless than 14 years of age. The assay should not be used forthe evaluationof suspected sexual abuse or for other medico-legalindications. Additional testing is recommended in anycircumstance when false positive or false negative resultscould lead to adverse medical, social or psychologicalconsequences. NG PCR NOT DETECTED Not Detect. [facility] Comment:A not detected test result does not exclude the possibilityof infection because test results can be affected byimproper specimen collection, concurrent antibiotic therapy,or the number of organisms in the specimen which may bebelow the sensitivity of the test. As with many diagnostictests, results from the Xpert CT/NG assay should beinterpreted in conjunction with other laboratory andclinical data available to the clinician.Xpert CT/NG performance has not been evaluated in patientsless than 14 years of age. The assay should not be used forthe evaluationof suspected sexual abuse or for other medico-legalindications. Additional testing is recommended in anycircumstance when false positive or false negative resultscould lead to adverse medical, social or psychologicalconsequences. Swab (Vaginal Swab) 06/13/2025 11:33 AM EDT 06/13/2025 2:17 PM EDT us Minoo Castro DO LAB MICROBIOLOGY - GENERAL O RDERABLES Final Result [facility] [address] [place] [phone] * (ABNORMAL) Bacterial Vaginosis Panel (06/13/2025 11:33 AM EDT) TRICHOMONAS VAGINALIS DETECTION BY PCR NOT DETECTED Not Detect [facility] BACTERIAL VAGINOSIS DETECTION BY PCR POSITIVE(A) Negative [facility] Comment:The BV organism targ ets of the Xpert Xpress MVP test can becommensal in women; Xpert Xpress MVP positive results forbacterial vaginosis should be considered in conjunction withother clinical and patient information to determine thedisease status. Organisms that are not detected by the XpertXpress MVP test have also been reported to be associatedwith BV and aerobic vaginitis.The Xpert Xpress MVP test performance has not been evaluatedin patients under the age of 14. [employer] DETECTION BY PCR DETECTED(A) Not Detect [facility] Concepción glab krusei PCR NOT DETECTED Not Detect [facility] Swab Vaginal structure / Unknown 06/13/2025 11:33 AM EDT 06/13/2025 2:17 PM EDT us Minoo Castro DO LAB MICROBIOLOGY - GENERAL O RDERABLES Final Result [facility] [address] [place] [phone] [phone] documented in this encounter Visit Diagnoses Diagnosis Vaginal discharge- Primary Leukorrhea, not specified as infective documented in this encounter Additional Health Concerns Assessment Noted Time PHQ-9 Depression Total Score: 0 02/11/20 25 1:30 PM EDT documented as of this encounter Care Teams Director Food Safety Relationship Specialty Start Date End Date Rosy Cobb MD [address] [place] [phone] PCP - General Internal Medicine 01/25/23 documented as of this encounter
[2025-06-13 15:33] LABS: Bacterial Vaginosis PCR POSITIVE (Negative); Candida Group PCR DETECTED (Not Detect); Candida glab krusei PCR NOT DETECTED (Not Detect); Trichomonas vaginalis PCR NOT DETECTED (Not Detect)
[2025-06-13 16:06] LABS: CT PCR NOT DETECTED (Not Detect.); NG PCR NOT DETECTED (Not Detect.)
--- OUTSIDE RECORDS SUMMARY | 2025-06-13 17:14 | XMS_ITS | Clinical Summary ---
Author Organization [facility] Address [address] [place] [address] Phone Care Team Providers Care Medical Attendant Name Role Phone Unavailable Primary Care Provider Unavailabl e Immunizations Immunization Administration Dates Next Due DTP 03/31/1999, 9,08/31/1992,1990 Hep B, ped/adol 02/18/2001,08/15/2000,07/13/2000 Hib (PRP-T) 03/01/1990 IPV 03/31/1999, 9,11/01/1998,1991,03/31/1991 MMR 08/31/1999,08/31/1992 Td (adult) (MBL), 2 Lf tetan us toxoid, PF, adsorbed 07/13/2000 Varicella 10/19/2001 Family History Relation Name Status Comments Brother Brother: Asthma Maternal Grandfather Materna l grandfather: Sudden /[place] under age 55 Social History Tobacco Use Types Packs/Day Years Used Date Smoking Tobacco: Never Assessed Comments Unknown Sex and Gender Information Value Date Recorded Sex Assigned at Not on file Legal Sex Female 4:32 PM EDT Gender Identity Not on file Sexual Orientation Not on file Plan of Treatment Health Maintenance Due Date Last Done Comments Varicella Vaccines (2 of 2 - 13+ 2-dose series) 11/16/2001 10/19/2001 DTaP,Tdap,and Td Vaccines (6 - Tdap) 07/13/2010 07/13/2000, 03/31/1999, 12/30/1998, Additional history exists HPV Vaccines (1 - 3-dose SCDM series) 2015 Influenza Vaccines (#1) 2025 COVID-19 Vaccine ( season) 2025 HIB Vaccines Completed 03/01/1990 IPV Vaccines Completed 03/31/1999, 12/02, 11/01/1998, Additional history exists MMR Vaccines Completed 08/31/1999, 08/31/1992 Hepatitis B Vaccines Completed 02/18/2001, 08/15/2000, 07/13/2000 Hepatitis A Vaccines Aged Out No long er eligible based on patient's age to complete this topic Men B Vaccine Aged Out No longer elig ible based on patient's age to complete this topic Meningococcal Vaccine Aged Out No annmarie julia eligible based on patient's age to complete this topic Pneumococcal Vaccine Aged Out No long er eligible based on patient's age to complete this topic
--- OUTSIDE RECORDS SUMMARY | 2025-06-13 17:14 | XMS_ITS | Encounter Summary ---
Author Organization [employer] Address [address] [facility] 7 [place] [address] Care Team Providers Care Supervisor Finish End Name Role Phone Rosy Cobb MD Primary Care Pro vider Reason for Visit * Reason Onset Date Comments Med Refill 07/16/2024 Encounter Details Date Type Department Care Team ([facility] st Contact Info) Description 07/16/2024 Telephone [facility] [address] [place] [address] Rosy Cobb MD [address] [place] [address] Med Refill Social History Tobacco Use Types [...] be through pcp. Please contact pt at [phone]. documented in this encounter Plan of Treatment Upcoming Encounters Date Type Department Care Team (Late st Contact Info) Description 07/31/2025 11:15 AM EDT Office Visit [facility] [address] [place] [address] Rosy Cobb MD [address] [place] [phone] documented as of this encounter Visit Diagnoses Not on filedocumented in this encounter Additional Health Concerns Assessment Noted Time PHQ-9 Depression Total Score: 1 01/31/20 24 10:55 AM EDT documented as of this encounter Care Teams Supervisor Finish End Relationship Specialty Start Date End Date Rosy Cobb MD [address] [place] [phone] PCP - General Internal Medicine 01/25/23 documented as of this encounter
--- OUTSIDE RECORDS SUMMARY | 2025-06-13 17:14 | XMS_ITS | Encounter Summary ---
Author Organization [employer] Address [address] [facility] 7t [place] [address] Care Team Providers Care Retail Store Manager Name Role Phone Rosy Cobb MD Primary Care Pro vider Encounter Details Date Type Department Care Team (Latest Contact Info) Description 06/13/2025 Travel Social History Tobacco Use Types Packs/Day Years [...] AM EDT documented as of this encounter Plan of Treatment Upcoming Encounters Date Type Department Care Team (Late st Contact Info) Description 07/31/2025 11:15 AM EDT Office Visit [facility] [address] [place] [phone] Rosy Cobb MD [address] [place] [address] documented as of this encounter Visit Diagnoses Not on filedocumented in this encounter Additional Health Concerns Assessment Noted Time PHQ-9 Depression Total Score: 0 02/11/20 25 1:30 PM EDT documented as of this encounter Care Teams Retail Store Manager Relationship Specialty Start Date End Date Rosy Cobb MD [address] [place] [address] [phone] PCP - General Internal Medicine 01/25/23 documented as of this encounter
--- OUTSIDE RECORDS SUMMARY | 2025-06-13 17:14 | XMS_ITS | Encounter Summary ---
Author Organization [employer] Address [address] [facility] 7t [place] [address] Care Team Providers Care Principal Technical Writer Name Role Phone Rosy Cobb MD Primary Care Pro vider Encounter Details Date Type Department Care Team (Late st Contact Info) Description 06/09/2025 Orders Only [facility] [address] [place] [address] Rosy Cobb MD [address] [place] [address] Social History Tobacco Use Types Packs/Day Years [...] Description 07/31/2025 11:15 AM EDT Office Visit [facility] [address] [place] [address] Rosy Cobb MD [address] [place] [phone] documented as of this encounter Visit Diagnoses Not on filedocumented in this encounter Additional Health Concerns Assessment Noted Time PHQ-9 Depression Total Score: 0 02/11/20 25 1:30 PM EDT documented as of this encounter Care Teams Principal Technical Writer Relationship Specialty Start Date End Date Rosy Cobb MD [address] [place] [address] [phone] PCP - General Internal Medicine 01/25/23 documented as of this encounter
--- OUTSIDE RECORDS SUMMARY | 2025-06-13 17:14 | XMS_ITS | Encounter Summary ---
Author Organization [employer] Address [address] [facility] 7 [place] [address] Care Team Providers Care Business Line Controller Name Role Phone Rosy Cobb MD Primary Care Pro vider Reason for Visit * Reason Onset Date Comments Nurse Triage 06/13/2025 Encounter Details Date Type Department Care Team ([facility] st Contact Info) Description 06/13/2025 Telephone [facility] [address] [place] [address] Rosy Cobb MD [address] [place] [address] Nurse Triage Social History Tobacco Use Types Packs/Day Years [...] encounter Miscellaneous Notes * Telephone Encounter - Annelise Wetzel RN - 06/13/2025 9:29 AM EDT Call returned to Demetrice Marques to triage below at [phone]. Reports having sx of vaginal discharge with odor x 2 days. Pt reports no color to discharge. Pt denies any urinary sx. Pt endorses pelvic pain. No flank pain. Denies any fever N/v. Pt denies concerns for STI, but wants testing done anyway. Pt states used OTC boric acid with no improvement. Pt advised of disposition, agrees to sick onsite with team provider today. Protocol Used: Vaginal Discharge (Adult) Protocol-Based Disposition: See in Office or Video Visit within 3 Days Future Appointments Date Time Provider Department Center 06/13/2025 11:15 AM Minoo Castro DO [facility] 07/31/2025 11:15 AM Rosy Singh MD [facility]ICINE [facility] Insurance verified as active per Real Time Eligibility in [facility]. Positive Triage Question: * Bad smelling vaginal discharge * All higher-acuity triage questions were negative Care Advice Discussed: * Genital Hygiene * Reasons To Call Back - Discharge becomes yellow or green - Fever or abdomen pain occur - You become worse * Telephone Encounter - Ruth Murray - 06/13/2025 9:25 AM EDT Symptom: Vaginal Symptoms - Not Bleeding Outcome: Talk to a nurse or provider within 15 minutes Reason: Severe pelvic pain now The caller accepted this outcome. Contact pt at [phone] documented in this encounter Plan of Treatment Upcoming Encounters Date Type Department Care Team (Late st Contact Info) Description 07/31/2025 11:15 AM EDT Office Visit [facility] [address] [place] [address] Rosy Cobb MD [address] [place] [address] [phone] documented as of this encounter Visit Diagnoses Not on filedocumented in this encounter Additional Health Concerns Assessment Noted Time PHQ-9 Depression Total Score: 0 02/11/20 25 1:30 PM EDT documented as of this encounter Care Teams Business Line Controller Relationship Specialty Start Date End Date Rosy Cobb MD [address] [place] [phone] PCP - General Internal Medicine 01/25/23 documented as of this encounter
--- OUTSIDE RECORDS SUMMARY | 2025-06-13 17:14 | XMS_ITS | Encounter Summary ---
Author Organization [facility] Address [address] [place] [address] Phone Care Team Providers Care Hammer Heater Name Role Phone Unavailable Primary Care Provider Unavailabl e Encounter Details Date Type Department Care Team (Late st Contact Info) Description 05/18/2017 Conversion Encounter [facility] - [address] [address] Social History Tobacco Use Types Packs/Day Years [...]
--- OUTSIDE RECORDS SUMMARY | 2025-06-13 17:14 | XMS_ITS | Encounter Summary ---
Author Organization [employer] Address [address] [facility] 7t [place] [address] Care Team Providers Care Equipment Cleaner And Tester Name Role Phone Rosy Cobb MD Primary Care Pro vider Reason for Visit * Reason Onset Date Comments Prior Auth Prescription 06/05/2025 PT came in explaining that other weight loss medication has been denied. Pharnacist explained to send out Phenterime and topiramate as a non combo product. Encounter Details Date Type Department Care Team (Late st Contact Info) Description 06/05/2025 Telephone [facility] [address] [place] [address] Rosy Cobb MD [address] [place] [address] Prior Auth Prescription (PT came in explaining that other weight loss medication has been denied. Pharnacist explained to send out Phenterime and topiramate as a non combo product. ) Social History Tobacco Use Types Packs/Day Years [...] the past 12 months, has t he [employer], gas, oil or water [employer] threatened to shut off services in your [...] encounter Miscellaneous Notes * Telephone Encounter - Lakshmi Gamez RN - 06/09/2025 3:11 PM EDT Telephone call placed to pt. Informed phentermine sent to pharmacy. Advised to call if having any SE. Explained step therapy. Pt verbalized understanding and denied having any further questions or concerns at this time. Telephone call placed to [facility]. Spoke with Hedy who states phentermine covered, they will fill it now. Please inform pt I will start then w Phentermine only Pt s/p tubal ligation , LMP 05/22/2025 I Explained possible SE at last discussion w pt and to call if experiencing SE -please advise pt start med once a day sent today and to keep apt w me in 07/2025 ,If tolerating well I will increase dose then Thanks * Telephone Encounter - Miguel Esteves MA - 06/05/2025 2:22 PM EDT PT came in explaining that other weight loss medication has been denied. Pharnacist explained to send out Phenterime and topiramate as a non combo product. documented in this encounter Plan of Treatment Upcoming Encounters Date Type Department Care Team (Late st Contact Info) Description 07/31/2025 11:15 AM EDT Office Visit [facility] [address] [place] [address] Rosy Cobb MD [address] [place] [phone] documented as of this encounter Visit Diagnoses Not on filedocumented in this encounter Additional Health Concerns Assessment Noted Time PHQ-9 Depression Total Score: 0 02/11/20 25 1:30 PM EDT documented as of this encounter Care Teams Equipment Cleaner And Tester Relationship Specialty Start Date End Date Rosy Cobb MD [address] [place] [phone] PCP - General Internal Medicine 01/25/23 documented as of this encounter
--- OUTSIDE RECORDS SUMMARY | 2025-06-13 17:14 | XMS_ITS | Clinical Summary ---
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 Unknown 04/30/2025 1:41 PM EDT 04/30/2025 3:57 PM EDT Rosy Singh MD LAB BLOOD ORDERAB LES Final Result Performing Organization Address [facility] Co de Phone Number [facility] [address] [place] [phone] * Hemoglobin A1c (04/30/2025 1:41 PM EDT) Hemoglobin A1c 5.2 <6.0 % [facility] Comment:Hemoglobin A1C Refer ence Range Adults: 4.8 - 6.0 % Non diabetic: < 6.0 % Goal: < 7.0 %Additional Action Suggested: > 8.0 %Note: Hemoglobin A1c results are invalid for patients with abnormal amounts of HbF. Blood transfusions may impact the HbA1c concentration in the patient sample. Estimated Average Glucose 103 mg/dL [facility] Comment:eAG = Estimated ave rage glucose which is %A1C expressed asaverage glucose, using the formula of the P9P-HatkhsuXpoxypq Glucose study (ADAG), Diabetes Care, Vol.31,#8,2007 Blood Venous blood specimen / Unknown 04/30/2025 1:41 PM EDT 04/30/2025 3:57 PM EDT us Rosy Singh MD LAB BLOOD ORDERAB LES Final Result Performing Organization Address City/[facility] Co de Phone Number [facility] [address] [place] [phone] * Ferritin (04/30/2025 1:41 PM EDT) Ferritin 10 10 - 122 ng/mL [facility] Blood Venous blood specimen / Unknown 04/30/2025 1:41 PM EDT 04/30/2025 3:57 PM EDT us Rosy Singh MD LAB BLOOD ORDERAB LES Final Result [facility] [address] [place] [phone] * (ABNORMAL) Lipid Panel, Standard (04/30/2025 1:41 PM EDT) Triglycerides 326(H) <150 mg/dL [facility] Comment:Slight Lipemia.Evan able Triglyceride: less than 150 mg/dLBorderline High Triglyceride 150-199 mg/dLHigh Triglyceride: 200-499 mg/dLVery High Triglyceride: greater than or equal to 5OO mg/dL Cholesterol 207(H) <200 mg/dL [facility] Comment:Desirable Cholestero l: less than 200 mg/dLBorderline High Cholesterol: 200-239 mg/dLHigh Cholesterol: greater than 239 mg/dL LDL Cholesterol Calculated 107(H) <100 mg/dL [facility] Comment:Desirable LDL: less than 100 mg/dLNear Optimal/Above Optimal LDL: 110- 129 mg/dLBorderline High LDL: 130-159 mg/dLHigh LDL: 160-189 mg/dLVery High LDL: greater than or equal to 190 mg/dL HDL Cholesterol 35(L) >40 mg/dL [facility] Comment:Desirable HDL: great er than 40 mg/dL Note: This HDL assay may give artificially low results in patients with liver disease. Blood Venous blood specimen / Unknown 04/30/2025 1:41 PM EDT 04/30/2025 3:57 PM EDT us Rosy Singh MD LAB BLOOD ORDERAB LES Final Result [facility] [address] [place] [phone] * (ABNORMAL) Comprehensive Metabolic Panel (04/30/2025 1:41 PM EDT) Sodium 140 135 - 145 mmol/L [facility] Potassium 4.2 3.3 - 5.1 mmol/L [facility] Chloride 106 96 - 108 mmol/L [facility] Carbon Dioxide 26 22 - 29 mmol/L [facility] Anion Gap 12 12 - 20 [facility] Urea Nitrogen (BUN) 9 9 - 16 mg/dL [facility] Creatinine, Serum 0.65 0.5 - 1.4 mg/dL [facility] Estimated Glomerular Filt Rate >60 [facility] Comment:Chronic Kidney Disea se: Estimated GFR < 60 mL/min/1.24h8Qhibsh Kidney Disease: Estimated GFR < 15 mL/min/1.73m2 Glucose 87 60 - 115 mg/dL [facility] Calcium 9.1 8.4 - 10.2 mg/dL [facility] Bilirubin, Total 0.7 0.0 - 1.0 mg/dL [facility] Aspartate Amino Transferase 32(H) 5 - 31 U/L [facility] Alanine Aminotransferase 21 0 - 31 U/L [facility] Total Protein 7.9 6.5 - 8.0 g/dL [facility] Albumin Level 4.6 3.5 - 5.0 g/dL [facility] Alkaline Phosphatase 58 39 - 117 U/L [facility] Blood Venous blood specimen / Unknown 04/30/2025 1:41 PM EDT 04/30/2025 3:57 PM EDT us Rosy Singh MD LAB BLOOD ORDERAB LES Final Result [facility] [address] [place] [phone] * Chlamydia/Trichomonas/Neisseria gonorrhoeae, PCR, Urine (04/30/2025 1:40 PM EDT) CT PCR, Urine NOT DETECTED Not Detect. [facility] Comment:A not detected test result does not exclude the possibilityof infection because test results can be affected byimproper specimen collection, concurrent antibiotic therapy,or the number of organisms in the specimen which may bebelow the sensitivity of the test. As with many diagnostictests, results from the Xpert CT/NG assay should beinterpreted in conjunction with other laboratory andclinical data available to the clinician.The Xpert CT/NG assay should not be used for the evaluationof suspected sexual abuse or for other medico-legalindications. Additional testing is recommended in anycircumstance when false positive or false negative resultscould lead to adverse medical, social or psychologicalconsequences. NG PCR, Urine NOT DETECTED Not Detect. [facility] Comment:A not detected test result does not exclude the possibilityof infection because test results can be affected byimproper specimen collection, concurrent antibiotic therapy,or the number of organisms in the specimen which may bebelow the sensitivity of the test. As with many diagnostictests, results from the Xpert CT/NG assay should beinterpreted in conjunction with other laboratory andclinical data available to the clinician.The Xpert CT/NG assay should not be used for the evaluationof suspected sexual abuse or for other medico-legalindications. Additional testing is recommended in anycircumstance when false positive or false negative resultscould lead to adverse medical, social or psychologicalconsequences. 04/30/2025 1:40 PM EDT 04/30/2025 4:07 PM EDT us Rosy Singh MD LAB URINE ORDERAB LES Final Result [facility] [address] [facility] [place] [phone] * HPV mRNA E6/E7 w/Reflex to HPV Genotypes 16, 18/45 (11/01/2023 10:55 AM EST) HPV nRNA E6/E7 Not Detected Not Detected [facility] Comment:Methodology: Transcr iption-Mediated AmplificationThis assay detects E6/E7 viral messenger RNA (mRNA) from 14high-risk HPV types (16,18,31,33,35,39,45,51,52,56,58,59,66,68).Cervical sources are required for HPV testing.If a vaginal source from a patient who has had atotal hysterectomy with removal of cervix wassubmitted, please contact the testing laboratoryfor alternative testing options.For additional information, please refer tohttp://education.[employer]/faq/ELA226e8(This link if provided for information/educational purposes only.)THIS TEST WAS PERFORMED AT:[facility] [place] [phone] GOMEZ MD HPV mRNA E6/E7 [facility] HPV 16 RNA [facility] HPV 18/45 RNA [facility] 11/01/2023 10:5 5 AM EST 11/02/2023 9:50 AM EST us Generic External Data Provider LAB CYTOLOGY URI SPENCE Final Result [facility] [address] [place] [phone] * Pap Smear (11/01/2023 10:55 AM EST) 11/01/2023 10:5 5 AM EST 11/02/2023 9:50 AM EST Narrative [facility] - 11/15/2023 6:55 AM EST ----- ------- Name: Demetrice Cronin Age/Sex: 33/F : 1990 Unit#: [id number] Attend Dr: Beatriz Griffin CNM Re11/01/23 Status: DEP REF Location: [facility] Disch: ----- ------- SPEC : [id number] RECD: 11/02/23-949 STATUS: NETTA RODRÍGUEZ NUM: [id number] RUTH ANN: 11/01/23-10[address] [facility] DR: Beatriz Griffin [facility] ENTERED: 11/02/23-1040 SP TYPE: Pap Smr OTHR DR: [facility] ORDERED: Pap Smear Interpretation Satisfactory for evaluation. Negative for intraepithelial lesion or malignancy. HPV mRNA E6/E7: NOT DETECTED This assay detects E6/E7 viral messenger RNA (mRNA) from 14 high-risk HPV types (16, 18, 31, 33, 35, 39, 45, 51, 52, 56, 58, 59, 66, 68) HPV testing performed by [facility], [place], [place]. See reference laboratory portion of the EMR for entire report. Clinical Information LMP: 10/09/2023 Previous PAP test: 12/01/2020, per patient 'abn pap' 2010 Material Received ThinPrep-Cervical Copies To: [facility] [address] [place] [address] Beatriz Griffin [address] Pelletier [address] [place] [phone] ----- ------- Signed (signature on file) WILBERT Storm ([facility]) 11/15/23 0655 ----- ------- END OF REPORT us Generic External Data Provider LAB CYTOLOGY URI SPENCE Final Result [facility] [address] [place] [phone] [phone] from Last 3 Months or Most Recently Relevant to Health Maintenance Insurance [facility] CARE < 65 HILDA RIGGINS [id number] [facility] Care Teams Nurse Behavioral Health Care Relationship Specialty Start Date End Date Rosy Cobb MD [address] [place] [address] PCP - General Internal Medicine 01/25/23
--- OUTSIDE RECORDS SUMMARY | 2025-06-13 17:14 | XMS_ITS | Encounter Summary ---
Author Organization [employer] Address [address] [facility] 7t [place] [address] Care Team Providers Care Document Restorer Name Role Phone Rosy Cobb MD Primary Care Pro vider Encounter Details Date Type Department Care Team (Late st Contact Info) Description 04/30/2025 Results Follow-Up [facility] [address] [place] [address] Rosy Cobb MD [address] [place] [address] [employer] Iron Binding Capacity, Ferritin, CBC, Additional followed-up results: 5 Social History Tobacco Use Types Packs/Day Years [...] as of this encounter Miscellaneous Notes * Result Encounter Note - Rosy Singh MD - 04/30/2025 9:08 PM EDT Please call patient to advise to come to already scheduled apt with me to go over abnormal labs Thanks documented in this encounter Plan of Treatment Upcoming Encounters Date Type Department Care Team (Late st Contact Info) Description 07/31/2025 11:15 AM EDT Office Visit [facility] [address] [place] [phone] Rosy Cobb MD [address] [place] [phone] documented as of this encounter Visit Diagnoses Not on filedocumented in this encounter Additional Health Concerns Assessment Noted Time PHQ-9 Depression Total Score: 0 02/11/20 25 1:30 PM EDT documented as of this encounter Care Teams Document Restorer Relationship Specialty Start Date End Date Rosy Cobb MD [address] [place] [phone] PCP - General Internal Medicine 01/25/23 documented as of this encounter
== END 2025-06-13 14:17 | disposition home or self-care (01) ==
LOC: HO.LNP 14:16
PROVIDERS: Visit Provider Family Medicine
DX: N89.8 Other specified noninflammatory disorders of vagina (principal)
CPT/HCPCS: 81515; 87086; 87491; 87591

== ENCOUNTER 2025-07-31 13:34 | Outpatient (REF) | payer OTHER, SELFPAY ==
[2025-07-31 16:30] LABS: Alanine Aminotransferase 18 U/L (0-31); Albumin Level 4.8 g/dL (3.5-5.0); Alkaline Phosphatase 52 U/L (39-117); Anion Gap 10 (12-20); Aspartate Amino Transferase 28 U/L (5-31); Blood Urea Nitrogen 9 mg/dL (9-16); Calcium 9.3 mg/dL (8.4-10.2); Carbon Dioxide 27 mmol/L (22-29); Chloride 107 mmol/L (96-108); Cholesterol 220 mg/dL (<200); Estimated Glomerular Filt Rate > 60; HDL Cholesterol 40 mg/dL (>40); Potassium 3.9 mmol/L (3.3-5.1); Sodium 140 mmol/L (135-145); Total Protein 8.1 g/dL (6.5-8.0); Triglycerides 204 mg/dL (<150)
--- OUTSIDE RECORDS SUMMARY | 2025-07-31 16:35 | XMS_ITS | Encounter Summary ---
Author Organization [employer] Address [address] [facility] 7 [place] [address] Care Team Providers Care Kiln Feeder Name Role Phone Rosy Cobb MD Primary Care Pro vider Reason for Visit * Reason Onset Date Comments Med Refill 07/31/2025 Encounter Details Date Type Department Care Team ([facility] st Contact Info) Description 07/31/2025 Telephone [facility] [address] [place] [address] Rosy Cobb MD [address] [place] [address] Med Refill Social History Tobacco Use Types [...] encounter Miscellaneous Notes * Telephone Encounter - Debbiemei Hoona - 07/31/2025 1:32 PM EDT Patient walked in requesting refill of medication. Patient said the Zepbound 2.5mg is work and Patient is reacting well. Patient would like to up dose to the 5ML for her next refill due. documented in this encounter Plan of Treatment Not on file documented as of this encounter Visit Diagnoses Not on filedocumented in this encounter Additional Health Concerns Assessment Noted Time PHQ-9 Depression Total Score: 0 02/11/20 25 1:30 PM EDT documented as of this encounter Care Teams Kiln Feeder Relationship Specialty Start Date End Date Rosy Cobb MD [address] [place] [phone] PCP - General Internal Medicine 01/25/23 documented as of this encounter
--- OUTSIDE RECORDS SUMMARY | 2025-07-31 16:35 | XMS_ITS | Clinical Summary ---
Author Organization [facility] Address [address] [place] [address] Phone Care Team Providers Care Hopper Filler Name Role Phone Unavailable Primary Care Provider Unavailabl e Immunizations Immunization Administration Dates Next Due DTP 03/31/1999, 9,08/31/1992,1990 Hep B, ped/adol 02/18/2001,08/15/2000,07/13/2000 Hib (PRP-T) 03/01/1990 IPV 03/31/1999, 9,11/01/1998,1991,03/31/1991 MMR 08/31/1999,08/31/1992 Td (adult) (MBL), 2 Lf tetan us toxoid, PF, adsorbed 07/13/2000 Varicella 10/19/2001 Family History Relation Name Status Comments Brother Brother: Asthma Maternal Grandfather Materna l grandfather: Sudden /[place] under age 55 Social History Tobacco Use [...]
--- OUTSIDE RECORDS SUMMARY | 2025-07-31 16:35 | XMS_ITS | Encounter Summary ---
Author Organization [facility] Address [address] [place] [address] Phone Care Team Providers Care Manager Managed Backup Services Name Role Phone Unavailable Primary Care Provider Unavailabl e Encounter Details Date Type Department Care Team (Late st Contact Info) Description 05/18/2017 Conversion Encounter [facility] - [address] [address] Social History Tobacco Use Types Packs/Day Years [...]
--- OUTSIDE RECORDS SUMMARY | 2025-07-31 16:35 | XMS_ITS | Encounter Summary ---
Author Organization [employer] Address [address] [facility] [address] [place] [address] Care Team Providers Care Cardiac Rn Name Role Phone oRsy Cobb MD Primary Care Pro vider Reason for Visit * Reason Onset Date Comments chart prep 07/30/2025 Encounter Details Date Type Department Care Team ([facility] st Contact Info) Description 07/30/[address] [facility] [address] [place] [address] Rosy Cobb MD [address] [place] [address] chart prep Social History Tobacco Use Types Packs/Day Years [...] encounter Miscellaneous Notes * Telephone Encounter - Stella Baugh MA - 07/30/2025 2:06 PM EDT Chart Prep Labs: done Images: no show soft tissue US 03/12/25 Referrals: MANAGER OF PRODUCT 09/08/25 2pm. Vaccines due: Covid and Flu Screenings: LMP Overdue care gaps: Not applicable documented in this encounter Plan of Treatment Not on file documented as of this encounter Visit Diagnoses Not on filedocumented in this encounter Additional Health Concerns Assessment Noted Time PHQ-9 Depression Total Score: 0 02/11/20 25 1:30 PM EDT documented as of this encounter Care Teams Cardiac Rn Relationship Specialty Start Date End Date Rosy Cobb MD [address] [place] [phone] PCP - General Internal Medicine 01/25/23 documented as of this encounter
--- OUTSIDE RECORDS SUMMARY | 2025-07-31 16:35 | XMS_ITS | Encounter Summary ---
Author Organization [employer] Address [address] [facility] 7 [place] [address] Care Team Providers Care Paver Installer Name Role Phone Rosy Cobb MD Primary Care Pro vider Reason for Visit * Reason Onset Date Comments Med Refill 07/16/2024 Encounter Details Date Type Department Care Team ([facility] st Contact Info) Description 07/16/2024 Telephone [facility] [address] [place] [address] Rosy Cobb MD [address] [place] [address] Med Refill Social History Tobacco Use Types [...] your housing situation today? I have pennie troare 01/31/[address] you li [...] encounter Miscellaneous Notes * Telephone Encounter - Yohannesjaime Silva - 07/16/2024 12:02 PM EDT Tc from pt requesting call back regarding program where she received a stop and shop gift card every month. Pt states she was advised this would be through pcp. Please contact pt at [phone]. documented in this encounter Plan of Treatment Not on file documented as of this encounter Visit Diagnoses Not on filedocumented in this encounter Additional Health Concerns Assessment Noted Time PHQ-9 Depression Total Score: 1 01/31/20 24 10:55 AM EDT documented as of this encounter Care Teams Paver Installer Relationship Specialty Start Date End Date Rosy Cobb MD [address] [place] [phone] PCP - General Internal Medicine 01/25/23 documented as of this encounter
--- OUTSIDE RECORDS SUMMARY | 2025-07-31 16:36 | XMS_ITS | Clinical Summary ---
Author Organization [employer] Address [address] [facility] [address] [place] [address] Care Team Providers Care Cardiology Rn Name Role Phone Rosy Cobb MD Primary Care Pro vider Allergies Active Allergy Reactions Criticality Noted Date Comments Aspirin Swelling 01/27/2023 Ibuprofen Swelling 09/30/2010 Medications albuterol (2.5 MG/3ML) 0.083% nebulizer solutionIndicat ions:Exacerbati [...] day. 90 tablet 1 05/01/20 25 Active Tirzepatide-Nader ght Management (Zepbound) 2.5 MG/0.5ML solution auto-injectorIn dications:Obesi ty Inject 0.5 mL (2.5 mg) under the skin 1 (one) time per week. Start 2.5 mg weekly x 4 weeks, then increased to 5 mg x 4 weeks, then increase to 7.5 mg weekly 2 mL 07/16/20 25 025 Active Alcohol Swabs (Alcohol Pads) 70 % padsIndications :Obesity (BMI 30-39.9) Use as directed on skin 100 each 2 07/16/20 Active Alcohol Swabs (Alcohol Pads) 70 % padsIndications :Obesity (BMI 30-39.9) Use as directed on skin 100 each 06/02/20 23 025 Discontinued(Re order (will not trigger notification to Pharmacy)) Tirzepatide-Nader ght Management (Zepbound) 2.5 MG/0.5ML solution auto-injectorIn dications:Obesi ty (BMI 30-39.9) Inject 0.5 mL (2.5 mg) under the skin 1 (one) time per week. Increase dose monthly 2 mL 07/01/20 025 Discontinued(Ot her) topiramate (Topamax) 50 MG tablet Take 1 tablet (50 mg) by mouth Once per day. 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 -sent recently x PFT-also to discuss w pulm at her upcoming Visit about sleep med referral -never went from referral from here -f w electric frying pan repairer for risk of platelet dx and hx of anemia -states not tolereated IV iron or oral in the past -advised to improve greens and to continue care w her specialist -states will do soon a af up apt -last saw in 11/2022 -saw industrial equipment wirer last 10/2022 Per pt -Referred today to assembled wood products repairer to eval due hr syndrome Asthma 01/27/2023 [...] w granulommatous colitis -referred to GI x eval Health care maintenance 01/27/2023 Assessment & Plan (06/05/2023 5:53 PM EDT): -Quantiferon 01/2023 Neg -pap smear 07/2022 Neg per pt to f 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 y -not able to get record-has apt x 07/2023 -vaccine : hepB x3 immune, HPV x3 , ,covid19 x2-advied x booster w Bivalent,tdap 2000-advised x booster wants to hold x now but to schedule both vaccines today Assessment & Plan (01/27/2023 8:08 PM EDT): -quantiferon 08/2021 Neg -pap smear 07/2022 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 Suspect strain, reviewed SERG, will x-ray. Has upcoming Physical therapy scheduled [...] diet and exercise,discussed healthy life style -discussed esthetician permanent makeup artist referral -done today again -pt denies personal or fx hx of thyroid ca nor hx of pancreatitis -explained possible SE of GLP1 -pt interested in med -prescribed ozempic today 0.12 mg weekly for 4 weeks and then 0.5 mg weekly Assessment & Plan (01/27/2023 8:04 PM EDT): BMI 29 Advised pt to improve diet and exercise,discussed healthy life style -discussed esthetician permanent makeup artist referral -done today Encounters Date Type Department Care Team Description 07/31/2025 Telephone [facility] [address] [place] [address] Rosy Cobb MD Med Refill 07/30/2025 Telephone [facility] [address] [place] [address] Rosy Cobb MD chart prep 07/16/2025 Refill [facility] [address] [place] [address] Rosy Cobb MD Obesity (BMI 30-39.9) 07/16/2025 Refill [facility] [address] [place] [address] Rosy Cobb MD Obesity (BMI 30-39.9) 07/16/2025 Orders Only [facility] [address] [place] [phone] Rosy Cobb MD 07/14/[address] [address] Rosy Cobb MD 07/11/2025 9:15 AM EDT Office Visit [address] [address] Rosy Cobb MD Hyperlipidemia, unspecified hyperlipidemia type (Primary Dx); Chronic hoarseness; BMI 32.0-32.9,adult; Health care maintenance; Mild asthma, unspecified whether complicated, unspecified whether persistent 07/11/2025 Travel 07/07/[address] [address] Rosy Cobb MD Prior Authorization 07/03/2025 Orders Only [address] [address] Rosy Cobb MD Obesity (BMI 30-39.9) (Primary Dx) 07/03/[address] [address] Rosy Cobb MD Nutrition referral 07/01/2025 Orders Only [address] [address] Rosy Cobb MD 07/01/[address] [address] Rosy Cobb MD Medication Question 07/01/2025 Telephone [facility] [address] [place] [address] [phone] Rosy Cobb MD Follow up with Lisa 06/17/[address] [address] Rosy Cobb MD Transfer Patient 06/16/[address] [place] [address] Rosy Cobb MD Call Back Request 06/16/2025 Refill [facility] [place] [address] Rosy Cobb MD Yeast infection 06/13/2025 11:15 AM EDT Office Visit [address] [address] Minoo Castro DO Vaginal discharge (Primary Dx) 06/13/2025 Travel 06/13/2025 Telephone [facility] [place] [address] Rosy Cobb MD Nurse Triage 06/09/2025 Orders Only [facility] [place] [address] Rosy Cobb MD 06/05/[address] [address] Rosy Cobb MD Prior Auth Prescription (PT came in explaining that other weight loss medication has been denied. Pharnacist explained to send out Phenterime and topiramate as a non combo product. ) 05/28/2025 Orders Only [facility] [place] [address] Rosy Cobb MD Obesity (BMI 30-39.9) (Primary Dx) 05/28/[address] [address] Rosy Cobb MD Prior Authorization 05/27/2025 Telephone [facility] [place] [place] [address] Rosy Cobb MD Prior Authorization; Call Back Request 05/16/2025 Telephone [facility] [place] [address] Beatriz Ray, java jsf developer Orders 05/08/2025 2:00 PM EDT Office Visit [facility] [address] [place] [phone] Pilar Rodriguez MD COVID-19 05/08/2025 Travel 05/06/[address] [address] Rosy Cobb MD Prior Authorization 05/05/[address] [address] Rosy Cobb MD Referral 05/01/2025 2:15 PM EDT Office Visit [address] [address] Rosy Cobb MD Hermansky-Pudlak syndrome (CMS/HCC) (Primary Dx); Constipation, unspecified constipation type; Nevus; Skin tag; Hyperlipidemia, unspecified hyperlipidemia type; Chronic hoarseness; Obesity (BMI 30-39.9); Health care maintenance; Skin lesions 05/01/2025 Travel 04/30/2025 Results Follow-Up [address] [address] Rosy Cobb MD Iron And Total Iron Binding Capacity, Ferritin, CBC, Additional followed-up results: 5 04/30/2025 Orders Only [address] [address] Rosy Cobb MD 04/30/[address] [address] Rosy Cobb MD chart prep from Last 3 Months Immunizations Immunization Administration [...] Sign Reading Time Taken Comments Blood Pressure 110/80 07/11/2025 9:12 AM EDT Pulse 89 07/11/2025 9:12 AM EDT Temperature 36 C (96.8 F) 07/11/2025 9:12 AM EDT Respiratory Rate 20 07/11/2025 9:12 AM EDT Oxygen Saturation 97% 07/11/2025 9:12 AM EDT Inhaled Oxygen Concentration - - Weight 77.8 kg (171 lb 9.6 oz) 07/11/2025 9:12 A M EDT Height 154.9 cm (5' 1 ) 07/11/2025 9:12 AM EDT Body Mass Index 32.42 07/11/2025 9:12 AM EDT Plan of Treatment Health Maintenance Due Date [...] 25 Disability Screening 02/10/2026 02/10/2025 Tobacco Screening 07/11/2026 07/11/2025 Pap Smear 11/01/2026 11/01/2023 Cervical Cancer Screening 11/01/2028 HPV/Cotest 11/01/2028 11/01/2023 Lipid Panel 04/30/2030 07/31/2025, 04/03, 03/04/2024, Additional history exists Zoster Vaccines (1 of [...] Procedure Name Priority Date/Time Associated Diagnosis Comments LIPID PANEL, STANDARD Routine 07/31/2025 1:41 PM EDT Hyperlipidemia, unspecified hyperlipidemia type COMPREHENSIVE METABOLIC PANEL Routine 07/31/2025 1:41 PM EDT Hyperlipidemia, unspecified hyperlipidemia type POCT URINALYSIS DIPSTICK Routine 06/13/2025 12:05 PM EDT Vaginal discharge POCT , URINE Routine 06/13/2025 12:04 PM EDT Vaginal discharge CHLAMYDIA/N. GONORRHOEAE RNA, TMA, UROGENITAL Routine 06/13/2025 11:33 AM EDT Vaginal discharge BACTERIAL VAGINOSIS PANEL Routine 06/13/2025 11:33 AM EDT Vaginal discharge CULTURE, URINE, ROUTINE Routine 06/13/2025 11:31 AM EDT Vaginal discharge T-SPOT(R).TB Routine 05/16/2025 [...] 04/30/2025 1:41 PM EDT Health care maintenance CHLAMYDIA/TRICHOMONAS /NEISSERIA GONORRHOEAE, PCR, URINE Routine 04/30/2025 1:40 PM EDT HPV MRNA E6/E7 REFLEX TO HPV 16, 18/45 Routine 11/01/2023 10:55 AM EST Obesity (BMI 30-39.9) PAP SMEAR Routine 11/01/2023 10:55 AM EST Obesity (BMI 30-39.9) from Last 3 Months or Most Recently Relevant to Health Maintenance Results * (ABNORMAL) Lipid Panel, Standard (07/31/2025 1:41 PM EDT) Only the most recent of2 resultswithin the time period is included. Triglycerides 204(H) <150 mg/dL [facility] Comment:Slight Lipemia.Evan able Triglyceride: less than 150 mg/dLBorderline High Triglyceride 150-199 mg/dLHigh Triglyceride: 200-499 mg/dLVery High Triglyceride: greater than or equal to 5OO mg/dL Cholesterol 220(H) <200 mg/dL [facility] Comment:Desirable Cholestero l: less than 200 mg/dLBorderline High Cholesterol: 200-239 mg/dLHigh Cholesterol: greater than 239 mg/dL LDL Cholesterol Calculated 140(H) <100 mg/dL [facility] Comment:Desirable LDL: less than 100 mg/dLNear Optimal/Above Optimal LDL: 110- 129 mg/dLBorderline High LDL: 130-159 mg/dLHigh LDL: 160-189 mg/dLVery High LDL: greater than or equal to 190 mg/dL HDL Cholesterol 40(L) >40 mg/dL [facility] Comment:Desirable HDL: great er than 40 mg/dL Note: This HDL assay may give artificially low results in patients with liver disease. Blood Venous blood specimen / Unknown 07/31/2025 1:41 PM EDT 07/31/2025 4:07 PM EDT us Rosy Singh MD LAB BLOOD ORDERAB LES Final Result Performing Organization Address City/[facility]/ZIP Co de Phone Number [facility] [address] [place] [address] [phone] * (ABNORMAL) Comprehensive Metabolic Panel (07/31/2025 1:41 PM EDT) Only the most recent of2 resultswithin the time period is included. Sodium 140 135 - 145 mmol/L [facility] Potassium 3.9 3.3 - 5.1 mmol/L [facility] Chloride 107 96 - 108 mmol/L [facility] Carbon Dioxide 27 22 - 29 mmol/L [facility] Anion Gap 10(L) 12 - 20 [facility] Urea Nitrogen (BUN) 9 9 - 16 mg/dL [facility] Creatinine, Serum 0.73 0.5 - 1.4 mg/dL [facility] Estimated Glomerular Filt Rate >60 [facility] Comment:Chronic Kidney Disea se: Estimated GFR < 60 mL/min/1.89g8Vnydcg Kidney Disease: Estimated GFR < 15 mL/min/1.73m2 Glucose 86 60 - 115 mg/dL [facility] Calcium 9.3 8.4 - 10.2 mg/dL [facility] Bilirubin, Total 0.7 0.0 - 1.0 mg/dL [facility] Aspartate Amino Transferase 28 5 - 31 U/L [facility] Alanine Aminotransferase 18 0 - 31 U/L [facility] Total Protein 8.1(H) 6.5 - 8.0 g/dL [facility] Albumin Level 4.8 3.5 - 5.0 g/dL [facility] Alkaline Phosphatase 52 39 - 117 U/L [facility] Blood Venous blood specimen / Unknown 07/31/2025 1:41 PM EDT 07/31/2025 4:07 PM EDT Rosy Singh MD LAB BLOOD ORDERAB LES Final Result [facility] [address] [place] [address] [phone] * POCT Urinalysis (06/13/2025 12:05 PM EDT) [...] Date Urine 06/13/2025 12:0 5 PM EDT Edufiisantiago Jott POINT OF CARE TEST ENTER/KEITH T ORDERABLES Final Result * POCT Urine (06/13/2025 12:04 PM EDT) Pathologist [facility] Preg Test, Ur Negative Negative, Indeterminate, None Detected, Invalid, Specimen unsatisfactory for evaluation, Weakly Positive, 2+ QC Media Lot # [id number] Lot# Expiration Date Urine 06/13/2025 12:0 4 PM EDT [employer] POINT OF CARE TEST ENTER/KEITH T ORDERABLES Final Result * (ABNORMAL) Bacterial Vaginosis Panel (06/13/2025 11:33 AM EDT) Pathologist [facility] TRICHOMONAS VAGINALIS DETECTION BY PCR NOT DETECTED Not Detect [facility] BACTERIAL VAGINOSIS DETECTION BY PCR POSITIVE(A) Negative [facility] Comment:The BV organism targ ets [...] GROUP DETECTION BY PCR DETECTED(A) Not Detect [facility] Concepción glab krusei PCR NOT DETECTED Not Detect [facility] Swab Vaginal structure / Unknown 06/13/2025 11:33 AM EDT 06/13/2025 2:17 PM EDT Minoo Castro DO LAB MICROBIOLOGY - GENERAL O RDERABLES Final Result [facility] [address] [place] [phone] [phone] * Chlamydia/N. Gonorrhoeae RNA, TMA, Vaginal (06/13/2025 11:33 AM EDT) CT PCR NOT DETECTED Not Detect. [facility] Comment:A not detected test result [...] psychologicalconsequences. NG PCR NOT DETECTED Not Detect. [facility] Comment:A not detected test result [...] 11:33 AM EDT 06/13/2025 2:17 PM EDT Minoo Castro DO LAB MICROBIOLOGY - GENERAL O RDERABLES Final Result Performing Organization Address [facility] Co de Phone Number [facility] [address] [place] [phone] * Culture, Urine, Routine (06/13/2025 11:31 AM EDT) Urine Urine specimen obtained by clean catch procedure / Unknown 06/13/2025 11:31 AM EDT 06/13/2025 6:19 PM EDT Comment:UACC Narrative [facility] - 06/15/2025 10:26 AM EDT Urine Culture Report Result Urine Culture 10,000 to 50,000 cfu/ml Urine Culture Mixed bacterial latesha characteristic of Urine Culture urogenital contamination. Specimen Source: Urine clean catch Minoo Castro DO LAB MICROBIOLOGY - GENERAL O RDERABLES Final Result Performing Organization Address [facility] Co de Phone Number [facility] [address] [place] [phone] * T-SPOT??.TB (05/16/2025 1:46 PM EDT) T Spot TB Negative Negative [facility] Comment:A negative test resu lt does [...] as aquantitative test. TS PANEL A 0 [facility] TS PANEL B 0 [facility] Negative Control Passed [facility] Positive Control Passed [facility] Comment:For additional infor matdov, please refer tohttp://education.[employer]/faq/QPI919(This link is being provided for informational/educational purposes only.)THIS TEST WAS PERFORMED AT:[employer] [id number] [place] [address]SGZOSPDGEOFF REID MD,PHD 05/16/2025 1:46 PM EDT 05/16/2025 4:08 PM EDT us Rosy Singh MD LAB BLOOD ORDERAB LES Final Result Performing Organization Address [facility]/ZIP Co de Phone Number [facility] [address] [place] [phone] * Influenza B (ID NOW Rapid Molecular) (05/08/2025 2:09 PM EDT) Pathologist [facility] Influenza B Negative Negative, Indeterminate [facility] Swab 05/08/2025 2:09 PM EDT us Pilar Rodriguez MD POINT OF CARE TEST ENTER/E DIT ORDERABLES Final Result Performing Organization Address [facility] Co de Phone Number [facility] [address] [place] [phone] * Influenza A (ID NOW Rapid Molecular) (05/08/2025 2:09 PM EDT) [facility] Influenza A Negative Negative, Indeterminate [facility] Swab 05/08/2025 2:09 PM EDT Pilar Rodriguez MD POINT OF CARE TEST ENTER/E DIT ORDERABLES Final Result Performing Organization Address [facility]/ZIP Co de Phone Number [facility] [address] [place] [phone] * (ABNORMAL) POCT Rapid COVID Ag (05/08/2025 2:09 PM EDT) [facility] Rapid COVID Ag Positive Swab 05/08/2025 2:09 PM EDT Result [facility] Pilar Rodriguez MD POINT OF CARE TEST ENTER/E DIT ORDERABLES Edited Result - Final * POCT rapid strep A manually resulted (05/08/2025 2:09 PM EDT) [facility] Rapid Strep A Screen Negative Negative, None Detected Swab 05/08/2025 2:09 PM EDT Result [facility] Pilar Rodriguez MD POINT OF CARE TEST ENTER/E DIT ORDERABLES Final Result * Syphilis Screen (04/30/2025 1:41 PM EDT) [facility] Syphilis Screen Nonreactive Nonreactive [facility] Blood 04/30/2025 1:41 PM EDT 04/30/2025 3:57 PM EDT Rosy Singh MD LAB BLOOD ORDERAB LES Final Result Performing Organization Address City/[facility]/ZIP Co de Phone Number [facility] [address] [place] [address] [phone] * (ABNORMAL) Vitamin D, 25-Hydroxy, Total, Immunoassay (04/30/2025 1:41 PM EDT) [facility] Vitamin D 25-OH Total 27.6(L) >30 ng/mL [facility] Comment: Health Based Reference Values*< 20 ng/mL [id number] ng/mL Insufficient> 30 ng/mL Sufficient*Gilmer PEREIRA. N [...] ORDERAB LES Final Result Performing Organization Address City/[facility]/ZIP Co de Phone Number [facility] [address] [place] [phone] * TSH with Reflex to Free T4 (04/30/2025 1:41 PM EDT) TSH reflex Free T4 1.41 0.32 - 4.0 uIU/mL [facility] Blood 04/30/2025 1:41 PM EDT 04/30/2025 3:57 PM EDT us Rosy Singh MD LAB BLOOD ORDERAB LES Final Result Performing Organization Address City/[facility]/ZIP Co de Phone Number [facility] [address] [place] [phone] * Hepatitis C Antibody with Reflex to HCV, RNA, Quantitative, Real-Time PCR (04/30/2025 1:41 PM EDT) [facility] Hepatitis C Antibody Nonreactive Nonreactive [facility] Comment:Antibodies to HCV no t detected; does not exclude early acuteHCV infection. Blood Venous blood specimen / Unknown 04/30/2025 1:41 PM EDT 04/30/2025 3:57 PM EDT Rosy Singh MD LAB BLOOD ORDERAB LES Final Result Performing Organization Address [facility]/ZIP Co de Phone Number [facility] [address] [place] [phone] * Iron And Total Iron Binding Capacity (04/30/2025 1:41 PM EDT) [facility] Iron 55 30 - 160 mcg/dL [facility] Total Iron Binding Capacity 286 228 - 428 mcg/dL [facility] Percent Iron Saturation 19 15 - 50 % [facility] Unsaturated Iron Binding 231 ug/dL [facility] Blood Venous blood specimen / Unknown 04/30/2025 1:41 PM EDT 04/30/2025 3:57 PM EDT Rosy Singh MD LAB BLOOD ORDERAB LES Final Result Performing Organization Address [facility]/ZIP Co de Phone Number [facility] [address] [place] [phone] * Hepatitis B surface antigen, EIA (04/30/2025 1:41 PM EDT) [facility] Hepatitis B Surface Ag Negative Negative [facility] Blood Venous blood specimen / Unknown 04/30/2025 1:41 PM EDT 04/30/2025 3:57 PM EDT Rosy Singh MD LAB BLOOD ORDERAB LES Final Result Performing Organization Address [facility]/ZIP Co de Phone Number [facility] [address] [place] [phone] * HIV-1/2 Antigen and Antibodies, Fourth Generation, with Reflexes (04/30/2025 1:41 PM EDT) Pathologist [facility] HIV AB/AG Nonreactive Nonreactive [facility] Comment:HIV-1 p24 Ag and/or HIV-1/HIV-2 Ab not detected.A test result that is nonreactive does not exclude thepossibility of exposure to or infection with HIV-1 and/orHIV-2. Nonreactive results in this assay for individualswith prior exposure to HIV-1 and/or HIV-2 may be due toantigen and antibody levels that are below the limit ofdetection of this assay.The [employer] 3D HIV Ag/Ab Combo assay result andsupplemental assay results should be interpreted inconjunction with the patient's clinical presentation,history and other laboratory results. If the results areinconsistent with clinical evidence, additional testing issuggested to confirm the result. Blood Venous blood specimen / Unknown 04/30/2025 1:41 PM EDT 04/30/2025 3:57 PM EDT us Rosy Singh MD LAB BLOOD ORDERAB LES Final Result Performing Organization Address [facility]/ZIP Co de Phone Number [facility] [address] [place] [phone] * (ABNORMAL) CBC (04/30/2025 1:41 PM EDT) White Blood Count 5.3 4.8 - 10.8 X10*3/uL [facility] Red Blood Count 4.30 4.20 - 5.50 X10*6/uL [facility] Hemoglobin 11.8(L) 12.0 - 16.0 g/dl [facility] Hematocrit 36.1(L) 37.0 - 47.0 % [facility] Mean Corpuscular Volume 84.0 80.0 - 98.0 fL [facility] Mean Corpuscular Hemoglobin 27.4 27.0 - 33.0 pg [facility] Mean Corpuscular HGB Conc 32.7 31.0 - 35.0 g/dl [facility] Red Cell Distribution Width 14.1 11.0 - 16.0 % [facility] Platelet Count 324 160 - 400 X10*3/uL [facility] Mean Platelet Volume 9.6 9.4 - 12.3 fL [facility] NRBC Pct Auto 0.0 0.0 - 0.2 /100WBC [facility] NRBC Abs Auto 0.000 0.0 - 0.012 X10*3/uL [facility] Blood Venous blood specimen / Unknown 04/30/2025 1:41 PM EDT 04/30/2025 3:57 PM EDT Rosy Singh MD LAB BLOOD ORDERAB LES Final Result [facility] [address] [place] [phone] * Hemoglobin A1c (04/30/2025 1:41 PM EDT) Hemoglobin A1c 5.2 <6.0 % [facility] Comment:Hemoglobin A1C Refer ence Range Adults: 4.8 - 6.0 % Non diabetic: < 6.0 % Goal: < 7.0 %Additional Action Suggested: > 8.0 %Note: Hemoglobin A1c results are invalid for patients with abnormal amounts of HbF. Blood transfusions may impact the HbA1c concentration in the patient sample. Estimated Average Glucose 103 mg/dL [facility] Comment:eAG = Estimated ave rage glucose which is %A1C expressed asaverage glucose, using the formula of the F7O-[id number] Glucose study (ADAG), Diabetes Care, Vol.31,#8,May. 2007 Blood Venous blood specimen / Unknown 04/30/2025 1:41 PM EDT 04/30/2025 3:57 PM EDT Rosy Singh MD LAB BLOOD ORDERAB LES Final Result [facility] [address] [place] [address] [phone] * Ferritin (04/30/2025 1:41 PM EDT) Pathologist [facility] Ferritin 10 10 - 122 ng/mL [facility] Blood Venous blood specimen / Unknown 04/30/2025 1:41 PM EDT 04/30/2025 3:57 PM EDT Rosy Singh MD LAB BLOOD ORDERAB LES Final Result Performing Organization Address [facility] Co de Phone Number [facility] [address] [place] [phone] * Chlamydia/Trichomonas/Neisseria gonorrhoeae, PCR, Urine (04/30/2025 1:40 PM EDT) [facility] CT PCR, Urine NOT DETECTED Not Detect. [facility] Comment:A not detected test result [...] NG PCR, Urine NOT DETECTED Not Detect. [facility] Comment:A not detected test result [...] MD LAB URINE ORDERAB LES Final Result [facility] [address] [place] [phone] * HPV mRNA E6/E7 w/Reflex to HPV Genotypes 16, 18/45 (11/01/2023 10:55 AM EST) HPV nRNA E6/E7 Not Detected Not Detected [facility] Comment:Methodology: Transcr iption-Mediated AmplificationThis assay detects E6/E7 viral messenger RNA (mRNA) from 14high-risk HPV types (16,18,31,33,35,39,45,51,52,56,58,59,66,68).Cervical sources are required for HPV testing.If a vaginal source from a patient who has had atotal hysterectomy with removal of cervix wassubmitted, please contact the testing laboratoryfor alternative testing options.For additional information, please refer tohttp://education.[employer]/faq/NGR321p9(This link if provided for information/educational purposes only.)THIS TEST WAS PERFORMED AT:[facility] [place] [phone] GOMEZ MD HPV mRNA E6/E7 TNP [facility] HPV 16 RNA [facility] HPV 18/45 RNA [facility] 11/01/2023 10:5 5 AM EST 11/02/2023 9:50 AM EST us Generic External Data Provider LAB CYTOLOGY URI SPENCE Final Result [facility] [address] [place] [phone] * Pap Smear (11/01/2023 10:55 AM EST) 11/01/2023 10:5 5 AM EST 11/02/2023 9:50 AM EST Narrative [facility] - 11/15/2023 6:55 AM EST ----- ------- Name: Demetrice Cronin Age/Sex: 33/F : 1990 Unit#: [id number] Attend Dr: Beatriz Griffin CNM Re11/01/23 Status: [facility] Location: [facility] Disch: ----- ------- SPEC : [id number] RECD: 11/02/23-949 STATUS: NETTA RODRÍGUEZ NUM: [id number] RUTH ANN: 11/01/23-1054 [facility] DR: Beatriz Griffin CNM ENTERED: 11/02/23-1039 SP TYPE: Pap Smr OTHR DR: [facility] ORDERED: Pap Smear Interpretation Satisfactory for evaluation. Negative for intraepithelial lesion or malignancy. HPV mRNA E6/E7: NOT DETECTED This assay detects E6/E7 viral messenger RNA (mRNA) from 14 high-risk HPV types (16, 18, 31, 33, 35, 39, 45, 51, 52, 56, 58, 59, 66, 68) HPV testing performed by [facility], [place], [place]. See reference laboratory portion of the EMR for entire report. Clinical Information LMP: 10/09/2023 Previous PAP test: 12/01/2020, per patient 'abn pap' 2011 Material Received ThinPrep-Cervical Copies To: [facility] [address] [place] [address] Beatriz Griffin [address] Pelletier [address] [place] [phone] ----- ------- Signed (signature on file) WLIBERT Storm (ASCP) 11/15/23 0655 ----- ------- END OF REPORT us Generic External Data Provider LAB CYTOLOGY URI SPENCE Final Result [facility] [address] [place] [phone] from Last 3 Months or Most Recently Relevant to Health Maintenance Insurance [employer] < 65 [employer] Care Teams Cardiology Rn Relationship Specialty Start Date End Date Rosy Cobb MD [address] [place] [phone] PCP - General Internal Medicine 01/25/23
== END 2025-07-31 13:35 | disposition home or self-care (01) ==
LOC: HO.HHCL 13:34
PROVIDERS: PCP Student in an Organized Health Care Education/Training Program; Visit Provider Student in an Organized Health Care Education/Training Program
DX: E78.5 Hyperlipidemia, unspecified (principal)
CPT/HCPCS: 36415; 80053; 80061